=== PATIENT | female | born 1985 | race Caucasian/White ===

== ENCOUNTER → 2016-05-31 | Outpatient (CLI) | payer BC ==
[2016-05-31 08:16] LABS: Basophils % (A) 0 %; CH 28.5; CHCM 32.8; Eosinophils # (A) 0.1 k/uL (0-0.7); Eosinophils % (A) 1 %; HCT 44.2 % (34.0-46.0); HDW 2.46; HGB 14.3 gm/dL (11.4-16.0); Luc # (Auto) 0.12; Luc % (Auto) 2; Lymphocytes # (A) 1.6 k/uL (1.0-4.8); Lymphocytes % (A) 27 %; MCH 28.2 pg (25.0-35.0); MCHC 32.3 g/dL (31.0-37.0); MCV 87.4 fL (80.0-100.0); Mean Platelet Volume 6.5; Monocytes # (A) 0.3 k/uL (0-1.0); Monocytes % (A) 5 %; Neutrophils # (A) 3.7 k/uL (1.3-7.7); Neutrophils % (A) 64 %; RBC 5.06 m/uL (3.80-5.40); RDW 12.3 % (11.5-15.5); WBC 5.8 k/uL (3.8-10.6); WBC (Perox) 6.27
[2016-05-31 08:34] LABS: ALT 28 U/L (9-52); AST 21 U/L (14-36); Alkaline Phosphatase 81 U/L (38-126); Anion Gap 9 mmol/L; Blood Urea Nitrogen 9 mg/dL (7-17); Calcium 9.5 mg/dL (8.4-10.2); Carbon Dioxide 28 mmol/L (22-30); Chloride 105 mmol/L (98-107); Cholesterol 215 mg/dL (<200); Glucose 106 mg/dL (74-99); HDL Cholesterol 63 mg/dL (40-60); Non-African American GFR(MDRD) >60 (>60 ml/min/1.73 sqM); Potassium 4.4 mmol/L (3.5-5.1); Sodium 142 mmol/L (137-145); Total Bilirubin 0.6 mg/dL (0.2-1.3); Total Protein 7.3 g/dL (6.3-8.2); Triglycerides 66 mg/dL (<150)
== END ==
LOC: LABWHC1 07:24
PROVIDERS: ATTEND Nurse Practitioner Primary Care
DX: Z00.00 Encounter for general adult medical examination without abnormal findings (principal)
CPT/HCPCS: 36415; 80053; 80061; 82306; 84443; 85025

== ENCOUNTER → 2016-07-26 | Outpatient (CLI) | payer BC ==
--- NOTE | 2016-07-27 17:24 | FL ---
EXAMINATION: Small bowel follow through DATE: 07/26/2016 CLINICAL INDICATION: 31-year-old female change in bowel habits, vomiting/diarrhea. Patient reports co lonoscopy found erosions in the terminal ileum. Patient with a 35 pound weight loss in 3.5 months. COMPARISON: 07/15/2013 radiographs FINDINGS: Following administration of a total of 16 ounces thin barium, serial films were carried out to 2 hour s 30 minutes. Barium is seen to reach the colon at the 2.5 hour film but not the 1 hour 45 minute jose elias m. The initial graduate teaching associate image shows possible 3 mm calculus in the left midabdomen. Cholecystectomy clips ar e present. Mild stool in the ascending colon. Initial images up to 1 hour show persistent prominent contrast within the stomach. Gradual emptying i s seen at 1 hour 45 minutes and 2 hours 30 minutes. Loops of jejunum and ileum are compressed and examined under fluoroscopy. Some of the spot views of t he terminal ileum suggest very subtle fold nodularity. Otherwise, mucosal pattern of the remainder of the small bowel is within normal limits. IMPRESSION: 1. Prominent retained contrast within the stomach up to atleast 1 hour. If gastroparesis is a clinic al possibility, a nuclear medicine gastric emptying study can be considered. 2. Normal small bowel transit time of around 2 hours. 3. Some of the spot views of the terminal ileum suggest very subtle fold nodularity. This is nonspeci fic but can be seen in the setting of an infectious or inflammatory terminal ileitis. 4. Possible nonobstructive 3 mm left renal calculus.
== END | disposition home or self-care (01) ==
LOC: RADFLMAIN 08:28
PROVIDERS: ATTEND Internal Medicine Gastroenterology
DX: R19.4 Change in bowel habit (principal)
CPT/HCPCS: 74250

== ENCOUNTER 2017-01-02 13:20 | Outpatient (CLI) | payer BC ==
[2017-01-02 13:42] VITALS: BP 114/73; PULSE 83; RESP 17; TEMP 97.3
--- NOTE | 2017-01-27 08:26 | P.MSEPDOC ---
Presenting Problems - Arrival Data Date of Arrival on Unit: 01/02/17 Time of Arrival on Unit: 13:20 Mode of Transport: Ambulatory - Complaint OB-Reason for Admission/Chief Complaint: Decreased Movement Comment: pt reports decreased movement since 1000 on 12/31, denies lof/vb, reports occasional tightening that is not associated with pain Medical History - Information : 3 Para: 2 Term: 1 : 1 Abortions: Spontaneous or Elective: 0 Number of Living Children: 2 - Gestational Age Gestational Age by WILTON (wks/days): 26 Weeks and 2 Days - History Complications: Prior Review of Systems - Review of Systems Constitutional: No problems Breast: No problems ENT: No problems Cardiovascular: No problems Respiratory: No problems Gastrointestinal: No problems Genitourinary: No problems Musculoskeletal: No problems Neurological: No problems Skin: No problems Comment: reports constant lower back pain for last several days that carries into her hips, no urinary issues associated with back pain Vital Signs - Temperature Temperature: 97.3 F Temperature Source: Temporal Artery Scan - Pulse Right Brachial Pulse Rate: 83 Pulse Assessment Method: Automatic Cuff - Respirations Respiratory Rate: 17 Oxygen Delivery Method: Room Air O2 Sat by Pulse Oximetry: 100 - Blood Pressure Right Arm Blood Pressure: 114/73 Blood Pressure Mean: 86 Blood Pressure Source: Automatic Cuff Medical Screen Scoring (Pre) - Cervical Exam Dilation: Exam Deferred Effacement: Exam Deferred Membranes: Intact - Uterine Contractions Frequency: N/A Duration: N/A Intensity: N/A - Maternal Vital Signs Maternal Temperature: N/A Maternal Blood Pressure: N/A Signs of Preeclampsia: N/A Maternal Respirations: N/A - Maternal Trauma Maternal Trauma: N/A - Assessment Baseline FHR: 145 Heart Rate - NICHD Category: Category I (Normal) = 0 Position: N/A Station: N/A - Total Score Total Score (Pre): 0 - Level of Risk Level of Risk: Low (0-5) Physician Notification (Pre) - Physician Notified Physician Notified Date: 01/02/17 Physician Notified Time: 13:50 Physician/Practitioner Notifed:: Dr Sood Spoke With: Dr Sood New Order Received: Yes (dc home) - Notification Comment Comment: pt ok to dc home at this time, has appt scheduled in two weeks Disposition - Disposition OB Disposition: Discharge to home, Written follow up instructions reviewed Discharge Date: 01/02/17 Discharge Time: 13:55 I agree with the RN Medical Screening Exam: Yes Risk & Benefit of care provided described in d/c instruction: Yes Diagnosis: DECREASED MOVEMENTS, SECOND TRIMESTER, FETUS 1
== END 2017-01-02 13:55 | disposition home or self-care (01) ==
LOC: FBPOP 13:20
PROVIDERS: ATTEND Obstetrics & Gynecology Obstetrics
DX: O36.8121 Decreased fetal movements, second trimester, fetus 1 (principal); Z3A.26 26 weeks gestation of pregnancy
CPT/HCPCS: 99213

== ENCOUNTER 2018-08-26 09:16 | Outpatient (CLI) | payer OTHER ==
[2018-08-26 09:59] VITALS: BP 120/75; PULSE 92; RESP 18; TEMP 97.1
--- NOTE | 2018-09-01 10:23 | P.MSEPDOC ---
Presenting Problems - Arrival Data Date of Arrival on Unit: 08/26/18 Time of Arrival on Unit: 09:30 Mode of Transport: Ambulatory - Complaint OB-Reason for Admission/Chief Complaint: Possible Onset of Labor Medical History - Information : 5 Para: 3 Term: 2 : 1 Abortions: Spontaneous or Elective: 1 Number of Living Children: 3 - Gestational Age Gestational Age by WILTON (wks/days): 37 Weeks and 3 Days Review of Systems - Review of Systems Constitutional: No problems Breast: No problems ENT: No problems Cardiovascular: No problems Respiratory: No problems Gastrointestinal: No problems Genitourinary: No problems Musculoskeletal: No problems Neurological: No problems Skin: No problems Vital Signs - Temperature Temperature: 97.1 F Temperature Source: Temporal Artery Scan - Pulse Right Brachial Pulse Rate: 92 - Respirations Respiratory Rate: 18 Oxygen Delivery Method: Room Air O2 Sat by Pulse Oximetry: 98 - Blood Pressure Right Arm Blood Pressure: 120/75 Blood Pressure Mean: 90 Blood Pressure Source: Automatic Cuff Medical Screen Scoring (Pre) - Cervical Exam Dilation: 1-3 cm = 1 Membranes: Intact - Uterine Contractions Frequency: N/A Duration: N/A Intensity: N/A - Maternal Vital Signs Maternal Temperature: N/A Maternal Blood Pressure: N/A Signs of Preeclampsia: N/A - Pain Assessment Pain Location and Character: Lower, Abdomen Pain Scale Used: Numeric (1 - 10) Pain Intensity: 5 Pain Description: *Acute Pain Behavior: None Exhibited, Vocalization Pain Aggravating Factors: Activity, Contractions - Maternal Trauma Maternal Trauma: N/A - Assessment Baseline FHR: 135 Heart Rate - NICHD Category: Category I (Normal) = 0 NST: Reactive Position: N/A Station: N/A - Total Score Total Score (Pre): 1 Physician Notification (Pre) - Physician Notified Physician Notified Date: 08/26/18 Physician Notified Time: 10:00 Physician/Practitioner Notifed:: homero Spoke With: homero New Order Received: (discharge home) - Notification Comment Comment: discharge home keep next sched appt with dr patel Disposition - Disposition OB Disposition: Discharge to home Discharge Date: 08/26/18 Discharge Time: 10:10 I agree with the RN Medical Screening Exam: Yes Risk & Benefit of care provided described in d/c instruction: Yes Diagnosis: FALSE LABOR AT OR AFTER 37 COMPLETED WEEKS OF GESTATION
== END 2018-08-26 10:10 | disposition home or self-care (01) ==
LOC: FBPOP 09:16
PROVIDERS: ATTEND Obstetrics & Gynecology
DX: O47.1 False labor at or after 37 completed weeks of gestation (principal); Z3A.37 37 weeks gestation of pregnancy
CPT/HCPCS: 59025; 99213

== ENCOUNTER 2018-09-01 06:05 | Outpatient (CLI) | payer OTHER ==
[2018-09-01 07:43] VITALS: BP 134/74; PULSE 92; RESP 16; TEMP 97.9
--- NOTE | 2018-09-11 12:41 | P.MSEPDOC ---
Presenting Problems - Arrival Data Date of Arrival on Unit: 09/01/18 Time of Arrival on Unit: 06:05 Mode of Transport: Ambulatory - Complaint OB-Reason for Admission/Chief Complaint: Possible Onset of Labor Medical History - Information : 5 Para: 3 Term: 3 : 0 Abortions: Spontaneous or Elective: 1 Number of Living Children: 3 - Gestational Age Gestational Age by WILTON (wks/days): 38 Weeks and 2 Days Review of Systems - Review of Systems Constitutional: No problems Breast: No problems ENT: No problems Cardiovascular: No problems Respiratory: No problems Gastrointestinal: No problems Genitourinary: No problems Musculoskeletal: No problems Neurological: No problems Skin: No problems Vital Signs - Temperature Temperature: 97.9 F Temperature Source: Oral - Pulse Pulse Oximetery Pulse Rate: 92 Pulse Assessment Method: Pulse Oximetry - Respirations Respiratory Rate: 16 Oxygen Delivery Method: Room Air O2 Sat by Pulse Oximetry: 99 - Blood Pressure Right Arm Blood Pressure: 134/74 Blood Pressure Mean: 94 Blood Pressure Source: Automatic Cuff Medical Screen Scoring (Pre) - Cervical Exam Dilation: 1-3 cm = 1 Effacement: Exam Deferred Membranes: Intact - Uterine Contractions Frequency: > 5 minutes apart = 1 Duration: > 40 seconds = 2 Intensity: N/A - Maternal Vital Signs Maternal Temperature: N/A Maternal Blood Pressure: N/A Signs of Preeclampsia: N/A Maternal Respirations: N/A - Assessment - Baby A Baseline FHR: 140 Heart Rate - NICHD Category: Category II (Indeterminate) = 3 NST: Reactive Position: N/A Station: N/A - Total Score - Baby A Total Score - Baby A: 7 - Level of Risk - Baby A Level of Risk - Baby A: Medium (6-9) - Pain Assessment Pain Location and Character: Back Pain Scale Used: Numeric (1 - 10) Pain Intensity: 8 Pain Management Goal: 3 Pain Description: *Acute, Tightness Pain Frequency: Intermittent Pain Duration Units: Minutes Pain Behavior: Vocalization Pain Aggravating Factors: Contractions Non-Pharmacological Interventions: Distraction, Reduce Environmental Stimuli Physician Notification (Pre) - Physician Notified Physician Notified Date: 09/01/18 Physician Notified Time: 07:20 Physician/Practitioner Notifed:: Dr. Sood Spoke With: Dr. Sood New Order Received: Yes - Notification Comment Comment: Dr. Sood called and report given on maternal status, status including 1 variable and 1 late decel but reactive strip and numerous accels, sterile vag exam no change after 1 hour. Pauline Benton RN agrees with documentation Disposition - Disposition OB Disposition: Discharge to home Discharge Date: 09/01/18 Discharge Time: 07:30 I agree with the RN Medical Screening Exam: Yes Risk & Benefit of care provided described in d/c instruction: Yes Diagnosis: FALSE LABOR AT OR AFTER 37 COMPLETED WEEKS OF GESTATION
== END 2018-09-01 07:30 | disposition home or self-care (01) ==
LOC: FBPOP 06:05
PROVIDERS: ATTEND Obstetrics & Gynecology Obstetrics
DX: O47.1 False labor at or after 37 completed weeks of gestation (principal); Z3A.38 38 weeks gestation of pregnancy
CPT/HCPCS: 59025; 84112; 99213

== ENCOUNTER 2018-09-06 05:50 | Inpatient (IN) | payer OTHER ==
[2018-09-06] MEDS ORDERED: METHYLERGONOVINE 0.2 MG/ML 1 ML AMP IM PRN (06:06)
[2018-09-06] MEDS ORDERED: TERBUTALINE 1 MG/ML VIAL SQ PRN (06:06)
[2018-09-06] MEDS ORDERED: LIDOCAINE 0.5% (PF) 5 MG/ML (50 ML SDV) SQ PRN (06:06)
[2018-09-06] MEDS ORDERED: AMPICILLIN 2,000 MG in SODIUM CHLORIDE 0.9% 100 ML IVPB STA (06:06)
[2018-09-06] MEDS ORDERED: CARBOPROST TROMETHAMINE 250 MCG/ML 1 ML AMP IM PRN (06:06)
[2018-09-06] MEDS ORDERED: OXYTOCIN 10 UNIT/ML 1 ML VIAL IM PRN (06:06)
[2018-09-06] MEDS ORDERED: OXYTOCIN 30 UNITS/500 ML NS 30 UNIT in SALINE 1 500ML.BAG IV SCH (06:15)
[2018-09-06 06:16] VITALS: BMI 35.9
[2018-09-06] MEDS: LACTATED RINGERS 1,000 ML IV SCH ×2 (06:27→09:38)
[2018-09-06 06:28] LABS: Basophils % (A) 0 %; Eosinophils # (A) 0.1 k/uL (0-0.7); Eosinophils % (A) 1 %; HCT 38.7 % (34.0-46.0); HGB 12.4 gm/dL (11.4-16.0); Lymphocytes % (A) 20 %; MCH 26.6 pg (25.0-35.0); Mean Platelet Volume 8.5; Monocytes # (A) 0.6 k/uL (0-1.0); Monocytes % (A) 6 %; Neutrophils # (A) 7.2 k/uL (1.3-7.7); Neutrophils % (A) 73 %; Platelet Count 126 k/uL (150-450); RBC 4.67 m/uL (3.80-5.40); RDW 15.1 % (11.5-15.5)
--- NOTE | 2018-09-06 08:30 | P.HPOB ---
History of Present Illness H&P Date: 09/06/18 Chief Complaint: IUP at 390/7 weeks This is a pleasant 33-year-old 5 para 3013 at 39-0/7 weeks that presents to labor and delivery for elective induction of labor. Patient has been receiving routine care with myself since the first trimester. care has been essentially uncomplicated. Patient has a history of a with her first delivery and 2 subsequent vaginal births after . Patient desires vaginal once again. Patient has a blood type of A+, rubella immune, RPR nonreactive, hepatitis B surface antigen negative, HIV negative, normal gestational diabetes screen on 02/28 with a result of 126. Group beta strep culture was positive at 36 weeks. ( 08/15/18). She did receive her Tdap Vaccine on 06/22/18 Today she states she is having an occasional contraction she notes good movement denies loss of fluid or vaginal bleeding. Review of Systems Constitutional: Denies fatigue, Denies fever Ears, nose, mouth and throat: Denies headache Cardiovascular: Reports leg edema Respiratory: Denies dyspnea Gastrointestinal: Denies constipation, Denies diarrhea, Denies nausea, Denies vomiting Genitourinary: Reports Past Medical History Additional Past Medical History / Comment(s): Crohn's disease, scoliosis History of Any Multi-Drug Resistant Organisms: None Reported Past Surgical History: Section, Cholecystectomy, Tonsillectomy Past Anesthesia/Blood Transfusion Reactions: No Reported Reaction Past Psychological History: No Psychological Hx Reported Smoking Status: Never smoker Past Alcohol Use History: None Reported Past Drug Use History: None Reported - Past Family History Father Family Medical History: No Reported History Medications and Allergies Home Medications Medication Instructions Recorded Confirmed Type Pnv,Calcium 72/Iron/Folic Acid 1 tab PO DAILY MDD 2 tabs 01/02/17 09/06/18 History [ Plus Tablet] Ranitidine HCl [Zantac] 150 mg PO BID 08/26/18 09/06/18 History L.acidoph,Paracasei, B.lactis 1 each PO DAILY 09/06/18 09/06/18 History [Probiotic] Allergies Allergy/AdvReac Type Severity Reaction Status Date / Time morphine Allergy Anaphylaxis Verified 09/06/18 06:02 Exam Osteopathic Statement: *. No significant issues noted on an osteopathic structural exam other than those noted in the History and Physical/Consult. Vital Signs Temp Pulse Resp BP Pulse Ox 09/06/18 06:08 97.4 F L 108 H 18 124/75 97 Intake and Output 09/05/18 09/06/18 09/06/18 22:59 06:59 14:59 Other: Weight 86.183 kg Targeted physical exam is performed on this date in general this is a well- nourished well-developed female in no acute distress, reading is noted to be nonlabored and heart has regular rate and rhythm, abdomen is noted to be gravid, on cervical exam she is 3/70/-2 amniotomy is performed and clear fluid i s obtained, heart tones are noted to be category 1 and she is neelima every 4 minutes. Results Result Diagrams: 09/06/18 06:12 Abnormal Lab Results - Last 24 Hours (Table) 09/06/18 Range/Units 06:12 Plt Count 126 L (150-450) k/uL Assessment and Plan (1) H/O vaginal after Current Visit: Yes Status: Acute Code(s): Z98.891 - HISTORY OF UTERINE SCAR FROM PREVIOUS SURGERY SNOMED Code(s): 714381210 (2) Positive GBS test Current Visit: No Status: Acute Code(s): B95.1 - STREPTOCOCCUS, GROUP B, CAUSING DISEASES [facility] SNOMED Code(s): 216459272 (3) Term Current Visit: No Status: Acute Code(s): Z34.80 - ENCOUNTER FOR SUPRVSN OF NORMAL , UNSP TRIMESTER SNOMED Code(s): 15735446 Plan: Plan induction of labor with Pitocin as she has done this in the past. Patient understands risks with a prior but given the length of time since her and 2 successful vaginal deliveries after she wishes to proceed. She declines request for epidural during labor. Anticipate spotting is vaginal delivery later this afternoon.
[2018-09-06] MEDS: PRENATAL VIT-IRON-FOLIC ACID 1 EACH CAP PO SCH (09:38)
[2018-09-06] MEDS: FAMOTIDINE 20 MG TAB PO SCH ×2 (09:38→22:01)
[2018-09-06] MEDS: AMPICILLIN 1,000 MG in SODIUM CHLORIDE 0.9% 50 ML IVPB SCH ×2 (11:07→14:45)
[2018-09-06] MEDS ORDERED: SIMETHICONE 80 MG CHEWABLE PO PRN (13:22)
[2018-09-06] MEDS ORDERED: diphenhydrAMINE 50 MG/ML 1 ML VIAL IVP PRN ×2 (13:22)
[2018-09-06] MEDS ORDERED: IBUPROFEN 600 MG TAB PO PRN (13:22)
[2018-09-06] MEDS ORDERED: diphenhydrAMINE 25 MG CAP PO PRN (13:22)
[2018-09-06] MEDS ORDERED: BENZOCAINE/MENTHOL SPRAY 1 GM/SPRAY AEROSOL TOPICAL PRN (13:22)
[2018-09-06] MEDS ORDERED: HYDROcodone/APAP 5-325MG 1 EACH TAB PO PRN (13:22)
[2018-09-06] MEDS ORDERED: ZOLPIDEM 5 MG TAB PO PRN (13:22)
[2018-09-06] MEDS ORDERED: LANOLIN CREAM 5 GM TUBE TOPICAL PRN (13:22)
[2018-09-06] MEDS ORDERED: diphenhydrAMINE 50 MG CAP PO PRN (13:22)
[2018-09-06] MEDS ORDERED: WITCH HAZEL 1 EACH MED..PAD TOPICAL PRN (13:22)
[2018-09-06] MEDS ORDERED: HYDROCORTISONE 2.5% RECTAL CREAM 30 GM TUBE RECTAL PRN (13:22)
--- NOTE | 2018-09-06 13:22 | P.PROBDLV ---
Vaginal Delivery Note - . Vaginal Delivery Note: This is a pleasant 33-year-old 5 para 3013 at 39-0/7 weeks that presented today for elective induction of labor. Patient was admitted and Pitocin induction of labor was begun. Amniotomy was performed once regular painful contractions were noted, patient was noted to have clear fluid at this time. Patient was GBS positive and treated 2 during the course of her labor. Patient progressed to complete began pushing and had a normal spontaneous vaginal delivery of a viable male infant with a compound hand, and a true knot noted in the umbilical cord. time of 1309, weight of 7 lbs. 7 oz. with Apgars of 9 and 10 at one and 5 minutes respect daily. After a two-minute delayed the umbilical cord was doubly clamped and cut and the placenta was delivered spontaneously intact with a three-vessel cord being noted. On inspection the patient's vaginal vault no lacerations were noted. Uterus is noted to be firm and below the umbilicus, estimated blood loss 250 mL, patient and infant tolerated delivery well and are resting comfortably.
[2018-09-06] MEDS ORDERED: OXYTOCIN 20 UNITS/1000 ML NS 1,000 ML IV SCH (13:30)
[2018-09-06] MEDS: ACETAMINOPHEN TAB 325 MG TAB PO PRN ×2 (13:52→21:41)
[2018-09-06 20:48] VITALS: RESP 16
[2018-09-06] MEDS: SENNOSIDES-DOCUSATE SODIUM 1 EACH TAB PO SCH (22:00)
[2018-09-07 07:45] LABS: Basophils % (A) 0 %; Eosinophils % (A) 0 %; HCT 37.9 % (34.0-46.0); HGB 12.2 gm/dL (11.4-16.0); Lymphocytes # (A) 1.9 k/uL (1.0-4.8); Lymphocytes % (A) 13 %; MCH 26.8 pg (25.0-35.0); MCHC 32.2 g/dL (31.0-37.0); MCV 83.2 fL (80.0-100.0); Mean Platelet Volume 8.5; Monocytes # (A) 0.8 k/uL (0-1.0); Monocytes % (A) 6 %; Neutrophils # (A) 11.2 k/uL (1.3-7.7); Neutrophils % (A) 80 %; Platelet Count 131 k/uL (150-450); RBC 4.55 m/uL (3.80-5.40); RDW 14.7 % (11.5-15.5)
[2018-09-07] MEDS: SENNOSIDES-DOCUSATE SODIUM 1 EACH TAB PO SCH (08:04)
--- NOTE | 2018-09-07 08:12 | P.DS ---
Providers Date of admission: 09/06/18 05:50 Expected date of discharge: 09/07/18 Attending physician: Brit Sood Primary care physician: Stated None - Discharge Diagnosis(es) (1) H/O vaginal after Current Visit: Yes Status: Acute (2) Positive GBS test Current Visit: No Status: Acute (3) Term Current Visit: No Status: Acute Hospital Course: This is a pleasant 33-year-old 5 para 3013 at 39-0/7 weeks that presented to labor and delivery yesterday for elective induction of labor. Patient has a history of 1 for breech with her first in 2 subsequent successful VBACs. Patient was admitted Pitocin induction of labor was begun. Patient progressed through labor amniotomy was performed when regular contractions were noted. Clear fluid was obtained at that time. Patient progressed to complete began pushing and had a normal spontaneous vaginal delivery of a viable male at 1309, weight of 7 lbs. 7 oz. with Apgars of 9 and 10 at one and 5 minutes respectively. Patient's course has been uneventful. She is ambulating and voiding without difficulty. She states her lochia is moderate. She is breast-feeding. She denies concerns and wishes discharge home at 24 hours. Patient Condition at Discharge: Good Plan - Discharge Summary New Discharge Prescriptions: No Action Pnv,Calcium 72/Iron/Folic Acid [ Plus Tablet] 1 tab PO DAILY MDD 2 tabs Ranitidine HCl [Zantac] 150 mg PO BID L.acidoph,Paracasei, B.lactis [Probiotic] 1 each PO DAILY Discharge Medication List Pnv,Calcium 72/Iron/Folic Acid [ Plus Tablet] 1 tab PO DAILY MDD 2 tabs 01/02/17 [History] Ranitidine HCl [Zantac] 150 mg PO BID 08/26/18 [History] L.acidoph,Paracasei, B.lactis [Probiotic] 1 each PO DAILY 09/06/18 [History] Follow up Appointment(s)/Referral(s): Brit Sood DO [Doctor of Osteopathic Medicine] - 4 Weeks Patient Instructions/Handouts: Vaginal Delivery (DC), Vaginal Delivery (GEN) Discharge Disposition: HOME SELF-CARE
[2018-09-07] MEDS: FAMOTIDINE 20 MG TAB PO SCH (11:55)
[2018-09-07] MEDS: PRENATAL VIT-IRON-FOLIC ACID 1 EACH CAP PO SCH (11:55)
[2018-09-07 16:32] VITALS: BP 102/58; PULSE 63; TEMP 98.6
== END 2018-09-07 17:00 | disposition home or self-care (01) | DRG 806 ==
LOC: 4FBP 05:50
PROVIDERS: ADMIT Obstetrics & Gynecology Obstetrics; ATTEND Obstetrics & Gynecology Obstetrics
PROC: 10E0XZZ Delivery of Products of Conception, External Approach (ICD-10-PCS; principal; 2018-09-06)
PROC: 10907ZC Drainage of Amniotic Fluid, Therapeutic from Products of Conception, Via Natural or Artificial Opening (ICD-10-PCS; 2018-09-06)
PROC: 3E033VJ Introduction of Other Hormone into Peripheral Vein, Percutaneous Approach (ICD-10-PCS; 2018-09-06)
DX: O34.219 Maternal care for unspecified type scar from previous cesarean delivery (principal); K50.90 Crohn's disease, unspecified, without complications; Z37.0 Single live birth; O69.2XX0 Labor and delivery complicated by other cord entanglement, with compression, not applicable or unspecified; O99.62 Diseases of the digestive system complicating childbirth; O32.6XX0 Maternal care for compound presentation, not applicable or unspecified; O99.824 Streptococcus B carrier state complicating childbirth; O99.89 Other specified diseases and conditions complicating pregnancy, childbirth and the puerperium; M41.9 Scoliosis, unspecified; Z3A.39 39 weeks gestation of pregnancy; Z90.49 Acquired absence of other specified parts of digestive tract; Z88.5 Allergy status to narcotic agent
CPT/HCPCS: 85025; 86850; 86900; 86901

== ENCOUNTER 2019-11-08 08:15 | Day surgery (SDC) | payer BC, OTHER ==
[2019-11-07 08:28] VITALS: BMI 31.1
[~2019-11-08 08:15] MED LIST: LACTATED RINGERS 1,000 ML IV SCH; LIDOCAINE 1% (10MG/ML) FOR IV START INTRADERMA PRN
[2019-11-08 08:52] VITALS: TEMP 97.6
[2019-11-08] MEDS ORDERED: PROPOFOL 10 MG/ML 20 ML VIAL IV ONE (09:50)
[2019-11-08] MEDS ORDERED: LIDOCAINE 1% INJ 10MG/ML (20 ML MDV) ONE (09:50)
--- NOTE | 2019-11-08 10:35 | P.PCN ---
Date of Procedure: 11/08/19 Description of Procedure: Brief history: Patient is a pleasant 34-year-old female presenting for EGD and colonoscopy for evaluation of GERD and change in bowel habits. Patient reports alternating constipation was bowel movement. She does report nocturnal bowel movements. She reports episodes of abdominal pain and severe nausea and vomiting. Procedure performed: Esophagogastroduodenoscopy with biopsy Colonoscopy with biopsy Estimated blood loss: Minimal. Preoperative diagnosis: GERD, change in bowel habits Anesthesia: MAC Procedure: After informed consent was obtained from the patient was brought into the endoscopy unit and IV sedation was administered by anesthesia under continuous monitoring. Initially upper endoscopy was done. The Olympus GF 190 video endoscope was inserted into the mouth and esophagus intubated without any difficulty and was gradually advanced into the stomach and duodenum and carefully examined. The bulb and second part of the duodenum appeared normal, with biopsies. The scope was then withdrawn into the stomach adequately insufflated with air and upon careful examination the antrum and body, cardia and fundus appeared normal, except for some mild scattered erythema in the antrum and body suggestive of mild gastritis. Biopsies taken. The scope was then withdrawn into the esophagus. The GE junction was located at 36 cm to the incisors with biopsies taken. It appeared regular with no erythema erosions or ulcerations. Rest of the esophagus appeared normal. Patient tolerated the procedure well. At this time the patient continued to remain sedation. Initial digital rectal examination was normal. Olympus CF 190 video colonoscope was then inserted into the rectum and gradually advanced to the cecum without any difficulty. Careful examination was performed as the scope was gradually being withdrawn. The prep was excellent. The cecum, ascending colon, transverse colon, descending colon, sigmoid colon and rectum appeared normal, with biopsies taken in the right and left colon in the setting of altered bowel function. Normal-appearing terminal ileum except for one superficial erosion with biopsies taken. Retroflexion was performed in the rectum and no lesions were noted, low-grade internal hemorrhoids. Patient tolerated the procedure well. Impression: 1. Mild gastritis antrum body, biopsied. Biopsies of the duodenum and GE junction. 2. Normal-appearing colon from rectum to cecum with a normal-appearing terminal ileum except for one superficial erosion in the ileum, with biopsies taken of the right colon, left colon and terminal ileum in the setting of altered bowel function. Recommendations: Findings of this examination were discussed with the patient as well as her . Okay to resume diet. Okay to resume medications. Follow-up in gastroenterology clinic as previously scheduled For results of biopsies.
[2019-11-08 11:03] VITALS: BP 116/84; PULSE 67; RESP 18
== END 2019-11-08 11:21 | disposition home or self-care (01) ==
LOC: ORWHC2ENDO 08:15
PROVIDERS: ATTEND Internal Medicine
DX: K29.70 Gastritis, unspecified, without bleeding (principal); K21.9 Gastro-esophageal reflux disease without esophagitis; K63.3 Ulcer of intestine; Z88.5 Allergy status to narcotic agent; Z90.49 Acquired absence of other specified parts of digestive tract; Z98.890 Other specified postprocedural states
CPT/HCPCS: 81025; 88305; 45380; 43239; J2001; J2704

== ENCOUNTER → 2020-01-09 | Day surgery (SDC) | payer OTHER, BC ==
[~2020-01-09] MED LIST changes: +GLUCAGON 1 MG/ML VIAL IM STA; -LACTATED RINGERS 1,000 ML IV SCH; -LIDOCAINE 1% (10MG/ML) FOR IV START INTRADERMA PRN
[2020-01-09 08:43] VITALS: BP 117/61; PULSE 75; RESP 16; TEMP 97.8
--- NOTE | 2020-01-09 16:29 | MR ---
EXAMINATION TYPE: MR Enterography DATE OF EXAM: 01/09/2020 COMPARISON: Fluoroscopic small bowel follow-through 07/26/2016 HISTORY: Abnormal Weight Loss. History of cholecystectomy. CONTRAST: Standard multiplanar, multisequence imaging of the abdomen is performed without and with IV contrast, patient is injected with 7.5 mL intravenous Gadavist gadolinium contrast. Oral Volumen and Water was given as per enterography protocol. FINDINGS: BOWEL: There is 7 to 10 cm of distal ileum segmental mural hyperenhancement within the right lower q uadrant and mid lower abdomen (701:69). There is no upstream dilatation to suggest stricture. There i s no significant associated wall thickening, intramural or perienteric edema, fibrofatty perforation, fistulization, or abscess. No restricted diffusion. No evidence of bowel obstruction or dilatation. LIVER: Visualized portions normal. BILIARY SYSTEM: Status post cholecystectomy. No visualized biliary ductal dilatation. PANCREAS: Normal. SPLEEN: Visualized portions normal. ADRENALS: Normal. KIDNEYS: Normal. PERITONEUM: No free air is visualized. Trace physiologic pelvic free fluid. ADENOPATHY: No lymphadenopathy. PELVIS: Visualized portions normal. Follicular changes of the bilateral ovaries with dominant follicl e on the right. VASCULATURE: No abdominal aortic aneurysm. MUSCULOSKELETAL: Normal sacroiliac joints and bone marrow signal. IMPRESSION: Nonspecific mural hyperenhancement of the distal ileum. No associated restricted diffusion, wall thic kening, intramural edema, or upstream dilatation. Wide differential includes mural inflammation such as Crohn's disease, enteritis, enteropathy, NSAIDs, or underdistention.
== END ==
LOC: RADMRIMAIN 08:11
PROVIDERS: ATTEND Physician Assistant
DX: R63.4 Abnormal weight loss (principal)
CPT/HCPCS: 72197; 74183; 96372; J1610; A9585

== ENCOUNTER → 2020-03-07 | Outpatient (CLI) | payer BC, OTHER ==
[2020-03-07 15:09] LABS: HCT 37.8 % (34.0-46.0); HGB 12.7 gm/dL (11.4-16.0); MCH 27.9 pg (25.0-35.0); MCHC 33.5 g/dL (31.0-37.0); MCV 83.1 fL (80.0-100.0); Mean Platelet Volume 6.9; Platelet Count 164 k/uL (150-450); RBC 4.54 m/uL (3.80-5.40); RDW 13.4 % (11.5-15.5); WBC 8.7 k/uL (3.8-10.6)
[2020-03-08 01:37] LABS: T4, Free (Free Thyroxine) 1.1 ng/dL (0.80-1.80)
[2020-03-08 01:38] LABS: ALT 17 U/L (8-44); AST 18 U/L (13-35); African American GFR (CKD) 113.1 (60.0-200.0); Albumin/Globulin Ratio 2.56 (1.60-3.17); Alkaline Phosphatase 84 U/L (41-126); BUN/Creat Ratio 11.25 Ratio (12.00-20.00); C Reactive Protein <0.4 mg/dL (0.0-0.8); Carbon Dioxide 27.9 mmol/L (21.6-31.8); Chloride 102 mmol/L (96-109); Globulin 1.8 g/dL (1.6-3.3); Glucose 94 mg/dL (70-110); Non-African American GFR(CKD) 97.6 (60.0-200.0); Potassium 4.2 mmol/L (3.5-5.5); Sodium 137 mmol/L (135-145); Total Bilirubin 0.3 mg/dL (0.3-1.2); Total Protein 6.4 g/dL (6.2-8.2)
== END | disposition home or self-care (01) ==
LOC: LABWHC1 14:31
PROVIDERS: ATTEND Obstetrics & Gynecology Obstetrics
DX: N92.6 Irregular menstruation, unspecified (principal); R19.4 Change in bowel habit
CPT/HCPCS: 36415; 80053; 84439; 84443; 85027; 85652; 86140

== ENCOUNTER 2020-04-10 11:34 | Emergency (ER) | payer OTHER, BC ==
[2020-04-10] MEDS ORDERED: ONDANSETRON 4 MG/2 ML VIAL IVP STA (12:07)
[2020-04-10 12:17] LABS: Basophils % (A) 1 %; Eosinophils # (A) 0.2 k/uL (0-0.7); Eosinophils % (A) 2 %; HCT 42.3 % (34.0-46.0); HGB 13.7 gm/dL (11.4-16.0); Lymphocytes # (A) 1.8 k/uL (1.0-4.8); Lymphocytes % (A) 23 %; MCH 26.7 pg (25.0-35.0); MCHC 32.4 g/dL (31.0-37.0); MCV 82.4 fL (80.0-100.0); Mean Platelet Volume 7.2; Monocytes # (A) 0.4 k/uL (0-1.0); Monocytes % (A) 5 %; Neutrophils # (A) 5.4 k/uL (1.3-7.7); Neutrophils % (A) 69 %; Platelet Count 211 k/uL (150-450); RBC 5.14 m/uL (3.80-5.40); RDW 13.8 % (11.5-15.5); WBC 7.8 k/uL (3.8-10.6)
[2020-04-10 12:18] LABS: Appearance,Urine Cloudy (Clear); Bacteria,Urine Rare /hpf; Bilirubin,Urine Negative (Negative); Blood,Urine Negative (Negative); Color,Urine Light Yellow; Glucose,Urine (UA) Negative (Negative); Ketones,Urine Negative (Negative); Leukocyte Esterase,Urine Negative (Negative); Mucus,Urine Rare /hpf; Nitrite,Urine Negative (Negative); Protein,Urine Negative (Negative); RBC,Urine 1 /hpf (0-5); Specific Gravity,Urine 1.018 (1.001-1.035); Squamous Epithelial Cell,Urine 7 /hpf (0-4); Urobilinogen,Urine <2.0 mg/dL (<2.0); WBC,Urine 2 /hpf (0-5)
[2020-04-10 12:28] LABS: ALT 20 U/L (4-34); AST 34 U/L (14-36); African American GFR (CKD) >90 (>60 ml/min/1.73 sqM); Albumin 4.6 g/dL (3.5-5.0); Alkaline Phosphatase 75 U/L (38-126); Amylase 102 U/L (30-110); Anion Gap 4 mmol/L; Blood Urea Nitrogen 10 mg/dL (7-17); Calcium 9.5 mg/dL (8.4-10.2); Carbon Dioxide 28 mmol/L (22-30); Chloride 104 mmol/L (98-107); Glucose 101 mg/dL (74-99); Lipase 104 U/L (23-300); Non-African American GFR(CKD) >90 (>60 ml/min/1.73 sqM); Potassium 4.6 mmol/L (3.5-5.1); Sodium 136 mmol/L (137-145); Total Bilirubin 0.8 mg/dL (0.2-1.3); Total Protein 7.9 g/dL (6.3-8.2)
--- NOTE | 2020-04-10 12:39 | ED ---
Abdominal Pain HPI - General Chief Complaint: Abdominal Pain Stated Complaint: nausea/abd pain/shoulder pain/diff swallowing Time Seen by Provider: 04/10/20 11:49 Source: patient Mode of arrival: wheelchair Limitations: no limitations - History of Present Illness Initial Comments: 34-year-old female presenting today for chief complaint of right upper abdominal pain. Patient states that she has right-sided abdominal pain at times that radiates towards the right side of the back. It is below the shoulder. She denies shoulder joint pain. Patient has a chest pain or pressure. She states she was recently diagnosed with Crohn's disease and believes she is having a flare she states she is not currently on any immunomodulators nor chronic steroids. Patient states that not too long ago she was told she had an ileus and is concerned that she possibly has an obstruction. She does endorse some nausea but no vomiting. She states she did have a "normal for her" bowel movement this morning. She denies any black tarry stools or bloody stools. yo ent denies fevers. pt admits to increased acid so states she frequently has acidic taste in mouth that "hanley like diesel fuel". Pt states this causing her difficulty while eating with regurgitation. Patient denies additional complaints. - Related Data Previous Rx's Medication Instructions Recorded Ondansetron Odt [Zofran Odt] 4 mg PO Q8HR PRN 7 Days #21 tab 04/10/20 Pantoprazole Sodium [Protonix] 40 mg PO DAILY 7 Days #7 tablet. 04/10/20 Allergies Allergy/AdvReac Type Severity Reaction Status Date / Time morphine Allergy Anaphylaxis(tongue Verified 04/10/20 11:39 & throat swelling,unconscious) Review of Systems ROS Statement: Those systems with pertinent positive or pertinent negative responses have been documented in the HPI. ROS Other: All systems not noted in ROS Statement are negative. Past Medical History Additional Past Medical History / Comment(s): states " is concerned with gastroparesis,having increased nausea and food not digensting properly", Crohn's disease, scoliosis History of Any Multi-Drug Resistant Organisms: None Reported Past Surgical History: Section, Cholecystectomy, Tonsillectomy Past Anesthesia/Blood Transfusion Reactions: No Reported Reaction Past Psychological History: No Psychological Hx Reported Smoking Status: Never smoker Past Alcohol Use History: None Reported Past Drug Use History: None Reported - Past Family History Father Family Medical History: No Reported History General Exam - General Exam Comments Initial Comments: General: The patient is awake and alert, in no distress Eye: +3 mm pupils are equal, round and reactive to light, extra-ocular movements are intact. No nystagmus. There is normal conjunctiva bilaterally. No signs of icterus. Ears, nose, mouth and throat: There are moist mucous membranes and no oral lesions. Neck: The neck is supple, there is no tenderness or JVD. Cardiovascular: There is a regular rate and rhythm. No murmur, rub or gallop is appreciated. Respiratory: Lungs are clear to auscultation, respirations are non-labored, breath sounds are equal. No wheezes, stridor, rales, or rhonchi. Gastrointestinal: Soft, non-distended, upper abdominal tenderness to palpation, abdomen without masses or organomegaly noted. There is no rebound or guarding present. Musculoskeletal: Normal ROM, no tenderness. Strength 5/5. Sensation intact. Radial pulses equal bilaterally 2+. Neurological: A&O x 3. CN II-XII intact grossly, There are no obvious motor or sensory deficits. Coordination appears grossly intact. Speech is normal. Skin: Skin is warm and dry and no rashes or lesions are noted. Psychiatric: Cooperative, appropriate mood & affect, normal judgment. Limitations: no limitations Course Vital Signs 04/10/20 04/10/20 11:37 13:40 Temperature 98.7 F 98.3 F Pulse Rate 82 71 Respiratory 20 18 Rate Blood Pressure 124/82 104/66 O2 Sat by Pulse 100 100 Oximetry Medical Decision Making - Medical Decision Making Labs stable. CT enteritis. No obstruction. normal bowel movements per patient. pt nausea controlled with zofran. pt given protonix for reflux like symptoms. recommend pcp and GI f/u. Protonix and zofran ordered outpatient. pt is to return for worsening symptoms. Discussed case with attending - Lab Data Result diagrams: 04/10/20 12:06 04/10/20 12:06 Lab Results 04/10/20 04/10/20 04/10/20 Range/Units 12:06 12:06 12:06 WBC 7.8 (3.8-10.6) k/uL RBC 5.14 (3.80-5.40) m/uL Hgb 13.7 (11.4-16.0) gm/dL Hct 42.3 (34.0-46.0) % MCV 82.4 (80.0-100.0) fL MCH 26.7 (25.0-35.0) pg MCHC 32.4 (31.0-37.0) g/dL RDW 13.8 (11.5-15.5) % Plt Count 211 (150-450) k/uL MPV 7.2 Neutrophils % 69 % Lymphocytes % 23 % Monocytes % 5 % Eosinophils % 2 % Basophils % 1 % Neutrophils # 5.4 (1.3-7.7) k/uL Lymphocytes # 1.8 (1.0-4.8) k/uL Monocytes # 0.4 (0-1.0) k/uL Eosinophils # 0.2 (0-0.7) k/uL Basophils # 0.0 (0-0.2) k/uL Sodium (137-145) mmol/L Potassium (3.5-5.1) mmol/L Chloride (98-107) mmol/L Carbon Dioxide (22-30) mmol/L Anion Gap mmol/L BUN (7-17) mg/dL Creatinine (0.52-1.04) mg/dL Est GFR (CKD-EPI)AfAm (>60 ml/min/1.73 sqM) Est GFR (CKD-EPI)NonAf (>60 ml/min/1.73 sqM) Glucose (74-99) mg/dL Calcium (8.4-10.2) mg/dL Total Bilirubin (0.2-1.3) mg/dL AST (14-36) U/L ALT (4-34) U/L Alkaline Phosphatase (38-126) U/L Total Protein (6.3-8.2) g/dL Albumin (3.5-5.0) g/dL Amylase (30-110) U/L Lipase (23-300) U/L Urine Color Light Yellow Urine Appearance Cloudy H (Clear) Urine pH 7.0 (5.0-8.0) Ur Specific [place] 1.018 (1.001-1.035) Urine Protein Negative (Negative) Urine Glucose (UA) Negative (Negative) Urine Ketones Negative (Negative) Urine Blood Negative (Negative) Urine Nitrite Negative (Negative) Urine Bilirubin Negative (Negative) Urine Urobilinogen <2.0 (<2.0) mg/dL Ur Leukocyte Esterase Negative (Negative) Urine RBC 1 (0-5) /hpf Urine WBC 2 (0-5) /hpf Ur Squamous Epith Cells 7 H (0-4) /hpf Urine Bacteria Rare H (None) /hpf Urine Mucus Rare H (None) /hpf Urine HCG, Qual Not Detected (Not Detectd) 04/10/20 Range/Units 12:06 WBC (3.8-10.6) k/uL RBC (3.80-5.40) m/uL Hgb (11.4-16.0) gm/dL Hct (34.0-46.0) % MCV (80.0-100.0) fL MCH (25.0-35.0) pg MCHC (31.0-37.0) g/dL RDW (11.5-15.5) % Plt Count (150-450) k/uL MPV Neutrophils % % Lymphocytes % % Monocytes % % Eosinophils % % Basophils % % Neutrophils # (1.3-7.7) k/uL Lymphocytes # (1.0-4.8) k/uL Monocytes # (0-1.0) k/uL Eosinophils # (0-0.7) k/uL Basophils # (0-0.2) k/uL Sodium 136 L (137-145) mmol/L Potassium 4.6 (3.5-5.1) mmol/L Chloride 104 (98-107) mmol/L Carbon Dioxide 28 (22-30) mmol/L Anion Gap 4 mmol/L BUN 10 (7-17) mg/dL Creatinine 0.60 (0.52-1.04) mg/dL Est GFR (CKD-EPI)AfAm >90 (>60 ml/min/1.73 sqM) Est GFR (CKD-EPI)NonAf >90 (>60 ml/min/1.73 sqM) Glucose 101 H (74-99) mg/dL Calcium 9.5 (8.4-10.2) mg/dL Total Bilirubin 0.8 (0.2-1.3) mg/dL AST 34 (14-36) U/L ALT 20 (4-34) U/L Alkaline Phosphatase 75 (38-126) U/L Total Protein 7.9 (6.3-8.2) g/dL Albumin 4.6 (3.5-5.0) g/dL Amylase 102 (30-110) U/L Lipase 104 (23-300) U/L Urine Color Urine Appearance (Clear) Urine pH (5.0-8.0) Ur Specific [place] (1.001-1.035) Urine Protein (Negative) Urine Glucose (UA) (Negative) Urine Ketones (Negative) Urine Blood (Negative) Urine Nitrite (Negative) Urine Bilirubin (Negative) Urine Urobilinogen (<2.0) mg/dL Ur Leukocyte Esterase (Negative) Urine RBC (0-5) /hpf Urine WBC (0-5) /hpf Ur Squamous Epith Cells (0-4) /hpf Urine Bacteria (None) /hpf Urine Mucus (None) /hpf Urine HCG, Qual (Not Detectd) Disposition Clinical Impression: Enteritis, Upper abdominal pain Disposition: HOME SELF-CARE Condition: Good Instructions (If sedation given, give patient instructions): Abdominal Pain (ED) Additional Instructions: Please use medication as discussed. Please follow-up with family doctor in the next 2 days. Please return to emergency room if the symptoms increase or worsen or for any other concerns. Prescriptions: Pantoprazole Sodium [Protonix] 40 mg PO DAILY 7 Days #7 tablet. Ondansetron Odt [Zofran Odt] 4 mg PO Q8HR PRN 7 Days #21 tab PRN Reason: Nausea Is patient prescribed a controlled substance at d/c from ED?: No Referrals: Dionicio Alexandra MD [Primary Care Provider] - 1-2 days Sweetie Marshall MD [STAFF PHYSICIAN] - 1-2 days Time of Disposition: 13:25
--- NOTE | 2020-04-10 13:15 | CT ---
EXAMINATION TYPE: CT abdomen pelvis w con DATE OF EXAM: 04/10/2020 COMPARISON: 03/01/2016 HISTORY: 34-year-old female with right-sided upper abdominal pain radiating into shoulder. Hx Crohn's . TECHNIQUE: Contiguous axial scanning of the abdomen and pelvis following administration of 100 ml Iso gibran 300 IV contrast. Delayed images through the kidneys and coronal/sagittal reconstructions perform ed. CT DLP: 959 mGycm Automated exposure control for dose reduction was used. FINDINGS: Heart normal size without pericardial effusion. Lung bases clear without pleural effusion. No focal liver lesion or biliary ductal dilatation. Portal venous system is patent. Cholecystectomy clips. Adrenal glands, right kidney with extrarenal pelvis, left kidney, spleen, and pancreas appear within normal limits. No dilated small bowel, free fluid, or free air. Scattered nonenlarged mesenteric lymph nodes. Some scattered fluid-filled small bowel loops in the abdomen are noted. Normal appendix. Mild stool burden. No pericolonic inflammatory change. Bladder is collapsed. Uterus anteverted. IUD is a peripherally situated within the uterine cavity. Kehinde th ovaries are visualized with follicular change. Small amount of cul-de-sac free fluid likely physio logic. Bones: Mild osteitis pubis. No osseous destructive process. IMPRESSION: 1. SOME SCATTERED FLUID-FILLED SMALL BOWEL LOOPS THROUGHOUT THE ABDOMEN ARE NONSPECIFIC. FINDINGS MAY REPRESENT A MILD ENTERITIS. 2. STATUS POST CHOLECYSTECTOMY. 3. IUD IN APPROPRIATE POSITION. SMALL AMOUNT OF CUL-DE-SAC FREE FLUID LIKELY PHYSIOLOGIC.
[2020-04-10] MEDS ORDERED: PANTOPRAZOLE 40 MG/10 ML VIAL IVP STA (13:24)
[2020-04-10 13:41] VITALS: BP 104/66; PULSE 71; RESP 18; TEMP 98.3
== END 2020-04-10 13:45 | disposition home or self-care (01) ==
LOC: EC 11:34
DX: K52.9 Noninfective gastroenteritis and colitis, unspecified (principal); Z88.5 Allergy status to narcotic agent; Z90.49 Acquired absence of other specified parts of digestive tract
CPT/HCPCS: 36415; 80053; 82150; 83690; 85025; 81001; 81025; 74177; 99284; 96374; 96375; J2405; C9113; Q9967

== ENCOUNTER → 2020-08-12 | Outpatient (CLI) | payer BC ==
--- NOTE | 2020-08-12 13:49 | US ---
EXAMINATION TYPE: US thyroid st tissue head/neck DATE OF EXAM: 08/12/2020 COMPARISON: NONE CLINICAL HISTORY: R13.10 Dysphagia, unspecified. GLAND SIZE: Right Lobe: 3.9 x 1.3 x 1.4 cm Overall Parenchyma: homogenous Left Lobe: 4.0 x 1.2 x 1.2 cm Overall Parenchyma: homogeneous Isthmus Thickness: 0.3 cm NODULES RIGHT: # of nodules measured on right: 0 LEFT: # of nodules measured on left: 0 ISTHMUS: # of nodules measured in the isthmus: 0 Bilateral neck scanned, no evidence of lymphadenopathy. IMPRESSION: No evidence of solid or cystic thyroid nodule. 2017 ACR TI-RADS LEVEL: TR-RADS 1 - BENIGN: No FNA *Highest TI-RADS level nodule reported
== END | disposition home or self-care (01) ==
LOC: RADUSWWP 13:25
PROVIDERS: ATTEND Family Medicine
DX: R13.10 Dysphagia, unspecified (principal)
CPT/HCPCS: 76536

== ENCOUNTER 2020-09-01 08:23 | Emergency (ER) | payer BC, OTHER ==
[2020-09-01 08:30] VITALS: RESP 16; TEMP 98.1
[2020-09-01] MEDS ORDERED: KETOROLAC 15 MG/ML 1 ML VIAL IVP STA (08:49)
--- NOTE | 2020-09-01 09:00 | ED ---
SOB HPI - General Chief Complaint: Shortness of Breath Stated Complaint: Difficulty Breathing/Swallowing Time Seen by Provider: 09/01/20 08:31 Source: patient Mode of arrival: ambulatory Limitations: no limitations - History of Present Illness Initial Comments: 35-year-old female presents to the emergency department with chief complaint of shortness of breath. States that her symptoms are located in the right upper chest where she feels reproducible chest pain that appears to be exacerbated when taking deep breaths. She also reports exertional dyspnea. States this issue has been ongoing since January and has recently underwent multiple tests including an echocardiogram and stress test. She reports somewhat of pain is radiating to her right shoulder region. She reports some nausea but no vomiting. Reports some pain also along the right side of her neck and some difficulty swallowing. States this issue has also been ongoing since January. However, over the last her days she states her exertional dyspnea seems to have increasing severity. She denies any fevers or chills. States she is otherwise distally able to have normal oral intake without any difficulties. - Related Data Home Medications Medication Instructions Recorded Confirmed Cbd Oil 60mg/Ml 30 mg PO Q6H PRN 09/01/20 09/01/20 Previous Rx's Medication Instructions Recorded predniSONE 50 mg PO DAILY #5 tab 09/01/20 Allergies Allergy/AdvReac Type Severity Reaction Status Date / Time morphine Allergy Anaphylaxis(tongue Verified 09/01/20 09:26 & throat swelling,unconscious) Review of Systems ROS Statement: Those systems with pertinent positive or pertinent negative responses have been documented in the HPI. ROS Other: All systems not noted in ROS Statement are negative. Past Medical History Additional Past Medical History / Comment(s): states " is concerned with gastroparesis,having increased nausea and food not digensting properly", Crohn's disease, scoliosis History of Any Multi-Drug Resistant Organisms: None Reported Past Surgical History: Section, Cholecystectomy, Tonsillectomy Past Anesthesia/Blood Transfusion Reactions: No Reported Reaction Past Psychological History: No Psychological Hx Reported Smoking Status: Never smoker Past Alcohol Use History: None Reported Past Drug Use History: None Reported - Past Family History Father Family Medical History: No Reported History General Exam Limitations: no limitations General appearance: alert, in no apparent distress Head exam: Present: atraumatic, normocephalic, normal inspection Eye exam: Present: normal appearance, PERRL, EOMI Pupils: Present: normal accommodation ENT exam: Present: normal exam, normal oropharynx, mucous membranes moist Neck exam: Present: normal inspection, tenderness (Some tenderness along the right side of her neck.), full ROM Respiratory exam: Present: normal lung sounds bilaterally. Absent: respiratory distress, wheezes, rales, rhonchi, stridor Cardiovascular Exam: Present: regular rate, normal rhythm, normal heart sounds. Absent: systolic murmur Extremities exam: Present: normal inspection, full ROM, normal capillary refill. Absent: tenderness, pedal edema, joint swelling Back exam: Present: normal inspection, full ROM. Absent: tenderness, CVA tenderness (R), CVA tenderness (L), muscle spasm, paraspinal tenderness, vertebral tenderness Neurological exam: Present: alert, oriented X3 Psychiatric exam: Present: normal affect, normal mood Skin exam: Present: warm, dry, intact, normal color Course Vital Signs 09/01/20 09/01/20 08:24 09:30 Temperature 98.1 F Pulse Rate 96 83 Respiratory 16 16 Rate Blood Pressure 142/88 123/73 O2 Sat by Pulse 100 98 Oximetry Medical Decision Making - Medical Decision Making 35-year-old female presents to the emergency department with chief complaint of shortness of breath. On physical examination, reproducible right upper chest pain. Patient does not appear to be in any respiratory distress. Able to finish full sentences without any difficulty. Vital signs within normal limits. CBC CMP unremarkable. Coags within normal limits. Considering her symptoms, I I obtained a CT angiogram which showed no signs of pulmonary embolism. I also give the patient IV fluids and analgesia. on reevaluation, she reports improvement in symptoms. Also prescribed a short course of steroids. She had no difficulties swallowing while in the ED. Return parameters were thoroughly discussed the patient is sitting ago. Case discussed with Dr. Orta. - Lab Data Result diagrams: 09/01/20 09:06 09/01/20 09:06 Lab Results 09/01/20 09/01/20 09/01/20 Range/Units 09:06 09:06 09:06 WBC 6.8 (3.8-10.6) k/uL RBC 4.77 (3.80-5.40) m/uL Hgb 11.9 (11.4-16.0) gm/dL Hct 36.8 (34.0-46.0) % MCV 77.1 L (80.0-100.0) fL MCH 25.0 (25.0-35.0) pg MCHC 32.4 (31.0-37.0) g/dL RDW 15.7 H (11.5-15.5) % Plt Count 219 (150-450) k/uL MPV 7.0 Neutrophils % 81 % Lymphocytes % 13 % Monocytes % 5 % Eosinophils % 0 % Basophils % 1 % Neutrophils # 5.5 (1.3-7.7) k/uL Lymphocytes # 0.9 L (1.0-4.8) k/uL Monocytes # 0.3 (0-1.0) k/uL Eosinophils # 0.0 (0-0.7) k/uL Basophils # 0.0 (0-0.2) k/uL Microcytosis Slight PT 10.7 (9.0-12.0) sec INR 1.0 (<1.2) APTT 24.9 (22.0-30.0) sec Sodium 138 (137-145) mmol/L Potassium 3.6 (3.5-5.1) mmol/L Chloride 109 H (98-107) mmol/L Carbon Dioxide 21 L (22-30) mmol/L Anion Gap 8 mmol/L BUN 9 (7-17) mg/dL Creatinine 0.69 (0.52-1.04) mg/dL Est GFR (CKD-EPI)AfAm >90 (>60 ml/min/1.73 sqM) Est GFR (CKD-EPI)NonAf >90 (>60 ml/min/1.73 sqM) Glucose 107 H (74-99) mg/dL Calcium 9.2 (8.4-10.2) mg/dL Total Bilirubin 0.4 (0.2-1.3) mg/dL AST 22 (14-36) U/L ALT 14 (4-34) U/L Alkaline Phosphatase 90 (38-126) U/L Troponin I (0.000-0.034) ng/mL Total Protein 6.9 (6.3-8.2) g/dL Albumin 4.3 (3.5-5.0) g/dL 09/01/20 Range/Units 09:06 WBC (3.8-10.6) k/uL RBC (3.80-5.40) m/uL Hgb (11.4-16.0) gm/dL Hct (34.0-46.0) % MCV (80.0-100.0) fL MCH (25.0-35.0) pg MCHC (31.0-37.0) g/dL RDW (11.5-15.5) % Plt Count (150-450) k/uL MPV Neutrophils % % Lymphocytes % % Monocytes % % Eosinophils % % Basophils % % Neutrophils # (1.3-7.7) k/uL Lymphocytes # (1.0-4.8) k/uL Monocytes # (0-1.0) k/uL Eosinophils # (0-0.7) k/uL Basophils # (0-0.2) k/uL Microcytosis PT (9.0-12.0) sec INR (<1.2) APTT (22.0-30.0) sec Sodium (137-145) mmol/L Potassium (3.5-5.1) mmol/L Chloride (98-107) mmol/L Carbon Dioxide (22-30) mmol/L Anion Gap mmol/L BUN (7-17) mg/dL Creatinine (0.52-1.04) mg/dL Est GFR (CKD-EPI)AfAm (>60 ml/min/1.73 sqM) Est GFR (CKD-EPI)NonAf (>60 ml/min/1.73 sqM) Glucose (74-99) mg/dL Calcium (8.4-10.2) mg/dL Total Bilirubin (0.2-1.3) mg/dL AST (14-36) U/L ALT (4-34) U/L Alkaline Phosphatase (38-126) U/L Troponin I <0.012 (0.000-0.034) ng/mL Total Protein (6.3-8.2) g/dL Albumin (3.5-5.0) g/dL Disposition Clinical Impression: Dyspnea, Atypical chest pain Disposition: HOME SELF-CARE Condition: Stable Instructions (If sedation given, give patient instructions): Chest Pain (DC) Additional Instructions: Take prescribed medication as directed. Follow with her primary care physician. Return to emergency department if symptoms worsen. Prescriptions: predniSONE 50 mg PO DAILY #5 tab Is patient prescribed a controlled substance at d/c from ED?: No Referrals: Dionicio Alexandra MD [Primary Care Provider] - 1-2 days Time of Disposition: 10:32
[2020-09-01 09:20] LABS: Basophils % (A) 1 %; Eosinophils % (A) 0 %; HCT 36.8 % (34.0-46.0); HGB 11.9 gm/dL (11.4-16.0); Lymphocytes # (A) 0.9 k/uL (1.0-4.8); Lymphocytes % (A) 13 %; MCHC 32.4 g/dL (31.0-37.0); MCV 77.1 fL (80.0-100.0); Microcytosis Slight; Monocytes # (A) 0.3 k/uL (0-1.0); Monocytes % (A) 5 %; Neutrophils # (A) 5.5 k/uL (1.3-7.7); Neutrophils % (A) 81 %; Platelet Count 219 k/uL (150-450); RBC 4.77 m/uL (3.80-5.40); RDW 15.7 % (11.5-15.5); WBC 6.8 k/uL (3.8-10.6)
[2020-09-01 09:30] LABS: ALT 14 U/L (4-34); AST 22 U/L (14-36); African American GFR (CKD) >90 (>60 ml/min/1.73 sqM); Albumin 4.3 g/dL (3.5-5.0); Alkaline Phosphatase 90 U/L (38-126); Anion Gap 8 mmol/L; Blood Urea Nitrogen 9 mg/dL (7-17); Calcium 9.2 mg/dL (8.4-10.2); Carbon Dioxide 21 mmol/L (22-30); Chloride 109 mmol/L (98-107); Glucose 107 mg/dL (74-99); Non-African American GFR(CKD) >90 (>60 ml/min/1.73 sqM); Potassium 3.6 mmol/L (3.5-5.1); Sodium 138 mmol/L (137-145); Total Bilirubin 0.4 mg/dL (0.2-1.3); Total Protein 6.9 g/dL (6.3-8.2)
[2020-09-01 09:33] VITALS: BP 123/73
[2020-09-01 09:34] LABS: Partial Thromboplastin Time 24.9 sec (22.0-30.0); Prothrombin Time 10.7 sec (9.0-12.0)
--- NOTE | 2020-09-01 10:12 | XR ---
EXAMINATION TYPE: XR chest 2V DATE OF EXAM: 09/01/2020 COMPARISON: Chest x-ray 11/21/2011 HISTORY: Difficulty breathing, shortness of breath TECHNIQUE: Frontal and lateral views of the chest are obtained. FINDINGS: There is no focal air space opacity, pleural effusion, or pneumothorax seen. The cardiac silhouette size is within normal limits. Overlying leads. Surgical clips present in the right upper quadrant. The osseous structures are intact. IMPRESSION: No acute cardiopulmonary process.
--- NOTE | 2020-09-01 10:24 | CT ---
EXAMINATION TYPE: CT chest angio for PE DATE OF EXAM: 09/01/2020 COMPARISON: Chest x-ray 09/01/2020 HISTORY: SOB, trouble swallowing for 4 months (getting worse) CT DLP: 306.5 mGycm Automated exposure control for dose reduction was used. CONTRAST: CT Chest for pulmonary embolism performed with with IV Contrast, patient injected with 100 mL of Isov ue 370. FINDINGS: LUNGS: The lungs are grossly clear, there is no concerning parenchymal mass or nodule identified. T here is no pleural effusion or pneumothorax seen. The tracheobronchial tree is patent. MEDIASTINUM: There is satisfactory enhancement of the pulmonary artery and its branches, there is no CT evidence for pulmonary embolism. There are no greater than 1 cm hilar or mediastinal lymph nodes. No pericardial effusion is seen. AORTA: No additional significant abnormality is seen. OTHER: No patient is post cholecystectomy. IMPRESSION: No evident pulmonary embolism.
[2020-09-01 11:30] VITALS: PULSE 77
== END 2020-09-01 11:28 | disposition home or self-care (01) ==
LOC: EC 08:23
DX: R06.09 Other forms of dyspnea (principal); R07.89 Other chest pain; M54.2 Cervicalgia; R13.10 Dysphagia, unspecified; R11.0 Nausea; Z79.52 Long term (current) use of systemic steroids
CPT/HCPCS: 36415; 93005; 80053; 84484; 85025; 85610; 85730; 71046; 71275; 99285; 96374; J1885; Q9967

== ENCOUNTER → 2020-09-29 | Outpatient (CLI) | payer BC ==
--- NOTE | 2020-09-29 17:00 | FL ---
EXAMINATION TYPE: FL barium swallow DATE OF EXAM: 09/29/2020 CLINICAL HISTORY: 35-year-old with history of reflux and solid foods getting stuck in throat for 8 mo nths. TECHNIQUE: A double contrast esophagram is performed utilizing air and barium. A total of 6 seconds of fluoroscopic time was utilized during procedure. COMPARISON: None FINDINGS: The patient swallowed crystals with water. Thick barium was given. The patient could not sw allow the thick barium. No diagnostic study could be performed. The patient refused exam. IMPRESSION: 1. The patient could not swallow the barium for the study to be performed. The patient refused the ex am.
== END | disposition home or self-care (01) ==
LOC: RADUSWWP 09:44
PROVIDERS: ATTEND Internal Medicine Gastroenterology
DX: K21.9 Gastro-esophageal reflux disease without esophagitis (principal)

== ENCOUNTER → 2020-10-16 | Outpatient (CLI) | payer BC ==
--- NOTE | 2020-10-16 17:08 | FL ---
EXAMINATION TYPE: FL barium swallow w video DATE OF EXAM: 10/16/2020 COMPARISON: NONE HISTORY: Dysphasia difficulty swallowing TECHNIQUE: Fluoroscopy. FINDINGS: Fluoroscopic guidance was provided for the procedure performed in conjunction with the [facility] [place] pathology department. Please see complete report forthcoming from the Speech Pathology departmen t. Various consistencies from thin liquid to solids were administered. Fluoroscopy time 1 minute 10 seconds. Number of images: 0. No aspiration or penetration was evident. No significant pooling was observed in the vallecula. There was normal propulsion of the bolus. IMPRESSION: 1. Normal modified barium swallow
== END | disposition home or self-care (01) ==
LOC: RADFLMAIN 10:59
PROVIDERS: ATTEND Otolaryngology
DX: R13.10 Dysphagia, unspecified (principal)
CPT/HCPCS: 74230

== ENCOUNTER 2020-11-03 08:51 | Day surgery (SDC) | payer BC ==
[2020-10-31 11:01] VITALS: BMI 31.1
[~2020-11-03 08:51] MED LIST changes: -GLUCAGON 1 MG/ML VIAL IM STA; +LACTATED RINGERS 1,000 ML IV SCH
[2020-11-03 09:24] VITALS: RESP 16; TEMP 98.2
[2020-11-03] MEDS ORDERED: PROPOFOL 10 MG/ML 20 ML VIAL IV ONE (09:32)
[2020-11-03] MEDS ORDERED: LIDOCAINE 1% INJ 10MG/ML (20 ML MDV) ONE (09:32)
--- NOTE | 2020-11-03 09:54 | P.PCN ---
Date of Procedure: 11/03/20 Description of Procedure: BRIEF HISTORY: Patient is a 35-year-old female presenting for outpatient esophagogastroduodenoscopy for symptoms of dysphagia and esophageal dysphagia. Patient was seen in the clinic reporting symptoms of passive regurgitation, epigastric abdominal pain and worsening dysphagia over the past 6 months. Predominantly to solid foods. Currently on Protonix therapy. PROCEDURE PERFORMED: Esophagogastroduodenoscopy with biopsy. PREOPERATIVE DIAGNOSIS: Dysphagia, esophageal dysphagia. ESTIMATED BLOOD LOSS: Minimal. IV sedation per anesthesia. PROCEDURE: After informed consent was obtained, the patient was brought into the endoscopy unit. IV sedation was administered by Anesthesia under continuous monitoring. Initially the Olympus GIF-190 video endoscope was inserted into the mouth. Esophagus intubated without any difficulty. It was gradually advanced into the stomach and duodenum and carefully examined. The bulb and the second part of the duodenum appeared normal, with biopsies taken to rule out celiac sprue. The scope at this time was withdrawn to the stomach, adequately insufflated with air, and upon careful examination, mucosa of the antrum, body, cardia and the fundus appeared normal, except for some mild punctate erythema in the antrum and body suggestive of mild gastritis with biopsies taken. The scope was then withdrawn into the esophagus. The GE junction was located at 36 cm from the incisors. The esophagus appeared normal, with biopsies of the lower esophagus and midesophagus. There were no erosions or ulcerations seen and the patient tolerated the procedure well. IMPRESSION: 1. Mild gastritis. 2. Biopsies of the duodenum, antrum and body, lower esophagus and midesophagus. RECOMMENDATIONS: The findings of this examination were discussed with the patient and her family. Okay to resume diet. Okay to resume medications. Await pathology from biopsies. Follow up in the GI clinic as scheduled. Continue current medical management for now.
[2020-11-03 10:12] VITALS: BP 118/79; PULSE 56
== END 2020-11-03 10:39 | disposition home or self-care (01) ==
LOC: ORWHC2ENDO 08:51
PROVIDERS: ATTEND Internal Medicine
DX: K29.50 Unspecified chronic gastritis without bleeding (principal); K20.90 Esophagitis, unspecified without bleeding
CPT/HCPCS: 43239; 81025; 88305; J2001; J2704

== ENCOUNTER → 2020-11-21 | Outpatient (CLI) | payer BC ==
--- NOTE | 2020-11-21 08:18 | US ---
EXAMINATION TYPE: US abdomen complete DATE OF EXAM: 11/21/2020 COMPARISON: CT abdomen and pelvis April 10, 2020 CLINICAL HISTORY: R10.9 ABD PAIN. Pt states generalized ABD pain, GB removed 9-10 yrs ago EXAM MEASUREMENTS: Liver Length: 14.6 cm CBD: 0.5 cm Spleen: 10.5 cm Right Kidney: 10.5 x 4.0 x 4.5 cm Left Kidney: 9.6 x 4.7 x 4.8 cm Pancreas: wnl, tail obscured by overlying bowel gas Liver: wnl Gallbladder: Surgically absent Evidence for sonographic Espinal's sign: No CBD: wnl Spleen: wnl Right Kidney: wnl, lower pole gassed out Left Kidney: wnl, lower pole gassed out Upper IVC: wnl Abd Aorta: wnl No abnormality visualized to account for pt's symptoms The liver is homogenous. The intrahepatic portion of the IVC and visualized abdominal aorta are with in normal limits. Gallbladder is surgically absent. Common bile duct is unremarkable. The visualize d portions of the pancreas are homogenous. Portions of distal body and tail obscured by overlying bow el gas on images saved. The spleen is unremarkable. Kidneys are symmetric and free of hydronephrosis . No renal lesions are seen. IMPRESSION: Slightly suboptimal study without acute finding identified.
== END | disposition home or self-care (01) ==
LOC: RADUSWWP 07:39
PROVIDERS: ATTEND Internal Medicine Gastroenterology
DX: R10.84 Generalized abdominal pain (principal); Z90.49 Acquired absence of other specified parts of digestive tract
CPT/HCPCS: 76700

== ENCOUNTER → 2020-12-12 | Outpatient (CLI) | payer BC ==
[2020-12-12 21:47] LABS: African American GFR (CKD) 97.4 (60.0-200.0); Albumin 4.6 g/dL (3.80-4.90); Albumin/Globulin Ratio 2.19 (1.60-3.17); Anion Gap 5.7 mmol/L (4.00-12.00); BUN/Creat Ratio 8.89 Ratio (12.00-20.00); Calcium 9.1 mg/dL (8.7-10.3); Carbon Dioxide 25.3 mmol/L (21.6-31.8); Globulin 2.1 g/dL (1.6-3.3); Potassium 4.3 mmol/L (3.5-5.5); Total Bilirubin 0.3 mg/dL (0.3-1.2); Total Protein 6.7 g/dL (6.2-8.2)
== END | disposition home or self-care (01) ==
LOC: LABWHC1 09:46
PROVIDERS: ATTEND Family Medicine
DX: K29.70 Gastritis, unspecified, without bleeding (principal); R13.10 Dysphagia, unspecified
CPT/HCPCS: 36415; 80053; 82150; 83690

== ENCOUNTER → 2021-06-12 | Outpatient (CLI) | payer BC ==
--- NOTE | 2021-06-12 09:03 | US ---
EXAMINATION TYPE: US abdomen complete DATE OF EXAM: 06/12/2021 COMPARISON: US, CT CLINICAL HISTORY: R10.11 RT UPPER QUADRANT PAIN. Chronic right lateral abdomen pain; gallbladder brandie silvino EXAM MEASUREMENTS: Liver Length: 11.6 cm Gallbladder Wall: surgically removed CBD: 0.3 cm Spleen: 9.7 cm Right Kidney: 11.1x 5.2 x +3.5 cm Left Kidney: 10.1 x 5.7 x 4.9 cm Pancreas: wnl Liver: wnl Gallbladder: surgically absent Evidence for sonographic Espinal's sign: no CBD: wnl Spleen:small hyperechoic foci noted within spleen may be granulomas Right Kidney: No hydronephrosis or masses seen Left Kidney: No hydronephrosis or masses seen Upper IVC: wnl Abd Aorta: wnl The liver is homogenous. The intrahepatic portion of the IVC and proximal abdominal aorta are within normal limits. Common bile duct is unremarkable. The visualized portions of the pancreas are homog enous. Kidneys are symmetric and free of hydronephrosis. No renal lesions are seen. IMPRESSION: No significant abnormality seen.
== END | disposition home or self-care (01) ==
LOC: RADUSWWP 07:29
PROVIDERS: ATTEND Family Medicine
DX: R10.11 Right upper quadrant pain (principal); Z90.49 Acquired absence of other specified parts of digestive tract
CPT/HCPCS: 76700

== ENCOUNTER → 2021-06-16 | Outpatient (CLI) | payer BC ==
--- NOTE | 2021-06-16 09:18 | MM ---
Reason for exam: clinical finding. Baseline mammogram. History: Family history of breast cancer in aunt. Took hormonal contraceptives for 20 years. Indicated problem(s): pain in both breasts. Physical Findings: A clinical breast exam by your physician is recommended on an annual basis and results should be correlated with mammographic findings. MG 3D Diag Mammo W/Cad ИВАН Bilateral CC and MLO view(s) were taken. There are scattered fibroglandular densities. There is no discrete abnormality. These results were verbally communicated with the patient and result sheet given to the patient on 06/16/21. ASSESSMENT: Incomplete: need additional imaging evaluation, BI-RAD 0 RECOMMENDATION: Ultrasound of the right breast. (for pain as ordered)
--- NOTE | 2021-06-16 09:20 | USB ---
Reason for exam: additional evaluation requested from abnormal screening. History: Family history of breast cancer in aunt. Took hormonal contraceptives for 20 years. Physical Findings: A clinical breast exam by your physician is recommended on an annual basis and results should be correlated with mammographic findings. US Breast RT Right complete breast ultrasound includes all four quadrants, the retroareolar region and axilla. Finding demonstrates no cystic or solid lesion seen. These results were verbally communicated with the patient and result sheet given to the patient on 06/16/21. ASSESSMENT: Benign, BI-RAD 2 RECOMMENDATION: Routine screening mammogram of both breasts at age 42. (unless clinical indication to start sooner) Manage on a clinical basis with regard to right breast pain.
== END | disposition home or self-care (01) ==
LOC: RADMAMWWP 06:58
PROVIDERS: ATTEND Family Medicine
DX: N64.4 Mastodynia (principal); Z80.3 Family history of malignant neoplasm of breast
CPT/HCPCS: 77062; 77066

== ENCOUNTER → 2021-07-17 | Outpatient (CLI) | payer BC ==
--- NOTE | 2021-07-17 09:16 | USB ---
Reason for exam: clinical finding. History: Family history of breast cancer in aunt. Took hormonal contraceptives for 20 years. Physical Findings: A clinical breast exam by your physician is recommended on an annual basis and results should be correlated with mammographic findings. US Breast RT Right complete breast ultrasound includes all four quadrants, the retroareolar region and axilla. Finding demonstrates no cystic or solid lesion seen. Entire right breast scanned including axilla. Results were given to the patient verbally at the time of the exam. ASSESSMENT: Negative, BI-RAD 1 RECOMMENDATION: Routine screening mammogram of both breasts at age 42. Manage on a clinical basis with regard to pain.
== END | disposition home or self-care (01) ==
LOC: RADUSWWP 07:40
PROVIDERS: ATTEND Family Medicine
DX: N64.4 Mastodynia (principal); Z80.3 Family history of malignant neoplasm of breast

== ENCOUNTER → 2021-07-25 | Outpatient (CLI) | payer BC ==
--- NOTE | 2021-07-26 12:53 | MR ---
MRI CERVICAL SPINE and brain: CLINICAL HISTORY: M 62.1, headache, swelling and neck pain TECHNIQUE: Multiplanar, multisequence imaging of the cervical spine and brain is performed without IV contrast COMPARISON: None FINDINGS: Brain MRI: There is no restricted diffusion. There is no hemorrhage or hydrocephalus. Pineal gland cy st noted incidentally. Corpus callosum, pituitary, cervical medullary junction, cerebellopontine angl es are normal. There are expected vascular flow voids. Mild mucosal disease present in the maxillary sinuses. Orbits show symmetric appearance. Cervical spine MRI: Sagittal images of the cervical spine show the craniocervical junction to appear within normal limits. The cervical and upper thoracic spinal cord is normal in course, caliber, and signal. Vertebral alignment is anatomic. The vertebral body and intravertebral disk heights are nor mal, some mild loss of disc signal C4-5, C5-6 consistent with disc desiccation, there is mild spondyl osis C5-6. The bone marrow signal intensity is within normal limits. Axial images show there is no significant focal disk disease, spinal canal stenosis, neural foraminal narrowing, or spinal cord compromise with the exception of some foraminal encroachment at C5-6 due t o uncovertebral joint hypertrophy IMPRESSION: Normal brain MRI without contrast, mild sinus disease. Mild degenerative disc disease C5 -6
== END | disposition home or self-care (01) ==
LOC: RADMRIMAIN 09:14
PROVIDERS: ATTEND Family Medicine
DX: M50.322 Other cervical disc degeneration at C5-C6 level (principal); J32.9 Chronic sinusitis, unspecified
CPT/HCPCS: 70551; 72141

== ENCOUNTER → 2021-07-28 | Outpatient (CLI) | payer BC ==
--- NOTE | 2021-07-28 19:42 | US ---
EXAMINATION TYPE: US thyroid st tissue head/neck DATE OF EXAM: 07/28/2021 COMPARISON: US dated 08/12/2020 CLINICAL HISTORY: R1310. dysphagia GLAND SIZE: Right Lobe: 4.6 x 2.8 x 1.3 cm Overall Parenchyma: homogenous Left Lobe: 4.1 x 1.2 x 1.2 cm Overall Parenchyma: homogeneous Isthmus Thickness: 0.21 cm NODULES RIGHT: # of nodules measured on right: 0 LEFT: # of nodules measured on left: 0 ISTHMUS: # of nodules measured in the isthmus: 0 Bilateral neck scanned, normal node noted right lateral neck. Patient states swelling right lateral neck. Multiple images taken over area of concern, no definite a bnormality noted. Homogeneous normal-sized thyroid without discrete nodule. IMPRESSION: As above. Unremarkable study. No significant change from prior.
== END | disposition home or self-care (01) ==
LOC: RADUSWWP 13:58
PROVIDERS: ATTEND Family Medicine
DX: R13.10 Dysphagia, unspecified (principal)
CPT/HCPCS: 76536

== ENCOUNTER → 2021-09-16 | Outpatient (CLI) | payer BC ==
--- NOTE | 2021-09-16 10:01 | CT ---
EXAMINATION TYPE: CT chest w con DATE OF EXAM: 09/16/2021 COMPARISON: CT dated 09/01/2020 HISTORY: Abnormal weight loss and bilateral clavicular lymph node swelling. CT DLP: 228.9 mGycm Automated exposure control for dose reduction was used. TECHNIQUE: CT scan of the chest is performed with IV Contrast, patient injected with 100ml mL of Isovue 300. FINDINGS: LUNGS: The lungs are grossly clear, there is no concerning parenchymal mass or nodule identified. T here is no pleural effusion or pneumothorax seen. The tracheobronchial tree is patent. MEDIASTINUM: There are no greater than 1 cm hilar or mediastinal lymph nodes. No cardiomegaly. Unrem arkable major mediastinal vessels. No pericardial effusion is seen. OTHER: Previous cholecystectomy. No aggressive bone lesion. IMPRESSION: No pathologically enlarged or suspicious lymph nodes in the chest. No significant pulmonary abnormali ty identified.
== END | disposition home or self-care (01) ==
LOC: RADCTMAIN 07:28
PROVIDERS: ATTEND Internal Medicine Hematology & Oncology
DX: R07.9 Chest pain, unspecified (principal); R63.4 Abnormal weight loss
CPT/HCPCS: 71260; Q9967

== ENCOUNTER → 2021-12-04 | Outpatient (CLI) | payer BC ==
[2021-12-04 22:38] LABS: Basophils # (A) 0.03 X 10*3/uL (0.00-0.10); Basophils % (A) 0.5 %; Eosinophils # (A) 0.06 X 10*3/uL (0.04-0.35); HCT 41.5 % (37.2-46.3); HGB 13.4 g/dL (12.0-15.0); Immature Grans, Automated 0.2 %; Lymphocytes # (A) 1.58 X 10*3/uL (0.90-5.00); Lymphocytes % (A) 25.4 %; MCH 27.3 pg (27.0-32.0); MCHC 32.3 g/dL (32.0-37.0); MCV 84.5 fL (80.0-97.0); Mean Platelet Volume 11.4 fL (9.5-12.2); Monocytes # (A) 0.42 X 10*3/uL (0.20-1.00); Monocytes % (A) 6.8 %; NRBC Per 100 WBC 0 /100 WBCS (0.0-0.0); Neutrophils # (A) 4.11 X 10*3/uL (1.80-7.70); Neutrophils % (A) 66.1 %; Platelet Count 199 X 10*3/uL (140-440); RBC 4.91 X 10*6/uL (4.10-5.20); RDW 13.5 % (11.5-14.5); WBC 6.21 X 10*3/uL (4.50-10.00)
[2021-12-04 23:52] LABS: % Iron Saturation 11.51 (12.00-45.00)
== END | disposition home or self-care (01) ==
LOC: LABWHC1 14:09
PROVIDERS: ATTEND Nurse Practitioner Family
DX: D64.9 Anemia, unspecified (principal)
CPT/HCPCS: 36415; 83540; 83550; 85025

== ENCOUNTER → 2022-03-04 | Outpatient (CLI) | payer BC ==
[2022-03-04 22:40] LABS: Basophils # (A) 0.04 X 10*3/uL (0.00-0.10); Basophils % (A) 0.5 %; Eosinophils # (A) 0.06 X 10*3/uL (0.04-0.35); Eosinophils % (A) 0.8 %; HCT 41.8 % (37.2-46.3); HGB 13.6 g/dL (12.0-15.0); Immature Grans, Automated 0.3 %; Lymphocytes # (A) 2.07 X 10*3/uL (0.90-5.00); Lymphocytes % (A) 27.2 %; MCH 27.1 pg (27.0-32.0); MCHC 32.5 g/dL (32.0-37.0); MCV 83.4 fL (80.0-97.0); Mean Platelet Volume 10.5 fL (9.5-12.2); Monocytes # (A) 0.51 X 10*3/uL (0.20-1.00); Monocytes % (A) 6.7 %; NRBC Per 100 WBC 0 /100 WBCS (0.0-0.0); Neutrophils # (A) 4.91 X 10*3/uL (1.80-7.70); Neutrophils % (A) 64.5 %; Platelet Count 226 X 10*3/uL (140-440); RBC 5.01 X 10*6/uL (4.10-5.20); RDW 14.2 % (11.5-14.5); WBC 7.61 X 10*3/uL (4.50-10.00)
[2022-03-05 02:44] LABS: African American GFR (CKD) 111.5 (60.0-200.0); Albumin 4.8 g/dL (3.8-4.9); Albumin/Globulin Ratio 2.4 (1.60-3.17); Anion Gap 11.7 mmol/L (10.00-18.00); BUN/Creat Ratio 12.25 Ratio (12.00-20.00); Blood Urea Nitrogen 9.8 mg/dL (9.0-27.0); Calcium 10.1 mg/dL (8.7-10.3); Carbon Dioxide 25.3 mmol/L (20.0-27.5); Non-African American GFR(CKD) 96.2 (60.0-200.0); Potassium 4.4 mmol/L (3.5-5.5); Total Bilirubin 0.2 mg/dL (0.30-1.20); Total Protein 6.8 g/dL (6.2-8.2)
== END | disposition home or self-care (01) ==
LOC: LABWHC1 16:15
PROVIDERS: ATTEND Family Medicine
DX: R10.10 Upper abdominal pain, unspecified (principal); R11.2 Nausea with vomiting, unspecified; R51.9 Headache, unspecified; R20.2 Paresthesia of skin; R42 Dizziness and giddiness
CPT/HCPCS: 36415; 80053; 82150; 83690; 85025

== ENCOUNTER → 2023-02-25 | Outpatient (CLI) | payer BC ==
[2023-02-26 01:26] VITALS: BP 137/67; PULSE 100; RESP 18; TEMP 96.6
--- NOTE | 2023-02-27 11:09 | P.MSEPDOC ---
Presenting Problems - Arrival Data Date of Arrival on Unit: 02/25/23 Time of Arrival on Unit: 22:28 Mode of Transport: Wheelchair - Complaint OB-Reason for Admission/Chief Complaint: Possible Onset of Labor Comment: Pt stated she started feeling contractions 02/25/2023 at 1930. States they are 3-5 minutes apart, rating 7/10 pain. Medical History - Information : 6 Para: 4 Term: 4 : 0 Abortions: Spontaneous or Elective: 1 Number of Living Children: 4 - Gestational Age Gestational Age by WILTON (wks/days): 37 Weeks and 6 Days - History Complications: GDM Review of Systems - Review of Systems Constitutional: No problems Breast: No problems ENT: No problems Cardiovascular: No problems Respiratory: No problems Gastrointestinal: No problems Genitourinary: No problems Musculoskeletal: No problems Neurological: No problems Skin: No problems Vital Signs - Temperature Temperature: 96.6 F Temperature Source: Temporal Artery Scan - Pulse Pulse Oximetery Pulse Rate: 100 Pulse Assessment Method: Pulse Oximetry - Respirations Respiratory Rate: 18 Oxygen Delivery Method: Room Air O2 Sat by Pulse Oximetry: 98 - Blood Pressure Right Arm Blood Pressure: 137/67 Blood Pressure Mean: 90 Blood Pressure Source: Automatic Cuff Medical Screen Scoring - Cervical Exam Dilation (cm): 3 Effacement (%): 50 Station: -3 Membranes: Intact - Uterine Contractions Frequency From (mins): 3 Frequency To (mins): 8 Duration From (seconds): 50 Duration To (seconds): 90 Intensity: Mild Resting: Soft to palpation - Assessment - Baby A Baseline FHR: 125 Heart Rate - NICHD Category: Category I (Normal) NST: Reactive Physician Notification - Physician Notified Physician Notified Date: 02/25/23 Physician Notified Time: 23:48 Physician: Jorge Alberto Watkins New Order Received: Yes - Notification Comment Comment: Order to keep patient for another hour and recheck cervical for change. If no change, pt okay to D/C home, to call Dr Watkins with any change in pt or status. Maternal Triage Index - Maternal Triage Index Presenting for scheduled procedure w/no complaint: No - Stat/Priority 1 Stat Priority 1: No - Urgent/Priority 2 Urgent Priority 2: No - Prompt/Priority 3 Prompt Priority 3: Yes Criteria Met for Priority 3: Pt presented with c/o contractions starting 02/25/2023 at 1930 every 3-5 min, rating 7/10 pain Disposition - Disposition OB Disposition: Discharge to home Discharge Date: 02/26/23 Discharge Time: 00:49 I agree with the RN Medical Screening Exam: Yes Physician's MSE Comment: I have neither seen nor examined the patient. Case reviewed; plan agreed upon as documented in EMR&OBIX.: Yes Diagnosis: RELATED CONDITIONS, UNSPECIFIED, THIRD TRIMESTER
== END ==
LOC: FBPOP 22:28
PROVIDERS: ATTEND Obstetrics & Gynecology
DX: O47.1 False labor at or after 37 completed weeks of gestation (principal); O24.419 Gestational diabetes mellitus in pregnancy, unspecified control; Z3A.37 37 weeks gestation of pregnancy; Z88.5 Allergy status to narcotic agent
CPT/HCPCS: 59025; 99213

== ENCOUNTER 2023-03-02 04:30 | Inpatient (IN) | payer BC ==
[2023-03-02] MEDS ORDERED: METHYLERGONOVINE 0.2 MG/ML 1 ML AMP IM PRN (06:43)
[2023-03-02] MEDS ORDERED: TRANEXAMIC 1,000 MG/100ML-NACL 1,000 MG in EMPTY BAG 1 BAG IV PRN (06:43)
[2023-03-02] MEDS ORDERED: miSOPROStoL 200 MCG TAB PO PRN (06:43)
[2023-03-02] MEDS ORDERED: OXYTOCIN 10 UNIT/ML 1 ML VIAL IM PRN (06:43)
[2023-03-02] MEDS ORDERED: TERBUTALINE 1 MG/ML VIAL SQ PRN (06:43)
[2023-03-02] MEDS ORDERED: LIDOCAINE 0.5% (PF) 5 MG/ML (50 ML SDV) SQ PRN (06:43)
[2023-03-02] MEDS ORDERED: CARBOPROST TROMETHAMINE 250 MCG/ML 1 ML AMP IM PRN (06:43)
[2023-03-02] MEDS ORDERED: LACTATED RINGERS 1,000 ML IV SCH (06:45)
[2023-03-02] MEDS ORDERED: OXYTOCIN 30 UNITS/500 ML NS 30 UNIT in SALINE 1 500ML.BAG IV SCH (06:45)
[2023-03-02 07:04] LABS: Basophils % (A) 0 %; Eosinophils % (A) 0 %; HCT 36.3 % (34.0-46.0); HGB 11.7 gm/dL (11.4-16.0); Hypochromasia Moderate; Lymphocytes # (A) 1.7 k/uL (1.0-4.8); Lymphocytes % (A) 19 %; MCH 24.3 pg (25.0-35.0); MCHC 32.3 g/dL (31.0-37.0); MCV 75.2 fL (80.0-100.0); Mean Platelet Volume 8.5; Microcytosis Slight; Monocytes # (A) 0.4 k/uL (0-1.0); Monocytes % (A) 5 %; Neutrophils # (A) 6.7 k/uL (1.3-7.7); Neutrophils % (A) 74 %; Platelet Count 172 k/uL (150-450); Poikilocytosis Slight; RBC 4.82 m/uL (3.80-5.40)
--- NOTE | 2023-03-02 08:43 | P.HPOB ---
History of Present Illness H&P Date: 03/02/23 Chief Complaint: IUP @ 38 3/7 weeks, active labor This is a 37-year-old 6 para 0414 at 38-3/7 weeks, estimated due date of 03/13. Patient presents with complaints of regular painful contractions beginning at 1 AM. Patient presented to labor and delivery around 4 AM noted to be 4-5 cm dilated. Patient was admitted to labor and delivery. Patient has been receiving routine care. She has been diagnosed with gestational diabetes and has been well controlled with diet alone. On bloodwork this patient is a blood type of A+, rubella status immune, hepatitis B surface antigen negative, HIV negative, RPR is nonreactive, group beta strep culture negative. Review of Systems Constitutional: Denies chills, Denies fatigue, Denies fever Ears, nose, mouth and throat: Denies headache Respiratory: Denies dyspnea Gastrointestinal: Denies constipation, Denies diarrhea, Denies nausea, Denies vomiting Genitourinary: Reports Past Medical History Past Medical History: GERD/Reflux, Osteoarthritis (OA) Additional Past Medical History / Comment(s): diff swallowing food, increased acid reflux, issues digesting food, abdominal pain,bloating and nausea with occ vomiting, Crohn's disease, scoliosis, migraines, anemia, kidney stones History of Any Multi-Drug Resistant Organisms: None Reported Past Surgical History: Section, Cholecystectomy, Tonsillectomy Additional Past Surgical History / Comment(s): cysts and bengn mass removed from uterus Past Anesthesia/Blood Transfusion Reactions: No Reported Reaction Past Psychological History: No Psychological Hx Reported Smoking Status: Never smoker Past Alcohol Use History: None Reported Past Drug Use History: None Reported Additional Drug Use History / Comment(s): CBD oil daily - Past Family History Father Family Medical History: Cancer Medications and Allergies Home Medications Medication Instructions Recorded Confirmed Type Aspirin [Adult Low Dose Aspirin EC] 81 mg PO DAILY 02/25/23 03/02/23 History Ferrous Sulfate [Iron] 325 mg PO DAILY 02/25/23 03/02/23 History Vit No.179/Iron/Folic 1 tablet PO DAILY 02/25/23 03/02/23 History [ Tablet] Allergies Allergy/AdvReac Type Severity Reaction Status Date / Time morphine Allergy Severe Anaphylaxis(tongue Verified 03/02/23 04:43 & throat swelling,unconscious) Exam Osteopathic Statement: *. No significant issues noted on an osteopathic structural exam other than those noted in the History and Physical/Consult. Intake and Output 03/01/23 03/02/23 03/02/23 22:59 06:59 14:59 Other: # Voids 1 Weight 78.471 kg Targeted physical exam is done on this date, in general this a well-nourished well-developed female in no acute distress, breathing is noted to be nonlabored, heart has a regular rate and rhythm, abdomen is gravid and appropriate for gestational age, on cervical exam she is 5/70/-1 station amniotomy is performed and clear fluid was obtained. heart tones returned be category 1 and she is neelima irregularly Results Result Diagrams: 03/02/23 06:42 Abnormal Lab Results - Last 24 Hours (Table) 03/02/23 Range/Units 06:42 MCV 75.2 L (80.0-100.0) fL MCH 24.3 L (25.0-35.0) pg Assessment and Plan (1) Active labor Current Visit: Yes Status: Acute Code(s): BHG0625 - SNOMED Code(s): 597160115 (2) H/O vaginal after Current Visit: No Status: Acute Code(s): Z98.891 - HISTORY OF UTERINE SCAR FROM PREVIOUS SURGERY SNOMED Code(s): 672054481 (3) Term Current Visit: No Status: Acute Code(s): Z34.80 - ENCOUNTER FOR SUPRVSN OF NORMAL , UNSP TRIMESTER SNOMED Code(s): 44383119 Plan: This is 37yo at 38 3/7 weeks that presents in active labor. Patient was admitted to labor and delivery, amniotomy is preformed and clear fluid is obtained, options for analgesia discussed and she declines. Anticipate spontaneous vaginal delivery.
[2023-03-02] MEDS ORDERED: SIMETHICONE 80 MG CHEWABLE PO PRN (13:56)
[2023-03-02] MEDS ORDERED: BENZOCAINE/MENTHOL SPRAY 1 GM/SPRAY AEROSOL TOPICAL PRN (13:56)
[2023-03-02] MEDS ORDERED: LANOLIN CREAM 5 GM TUBE TOPICAL PRN (13:56)
[2023-03-02] MEDS ORDERED: ZOLPIDEM 5 MG TAB PO PRN (13:56)
[2023-03-02] MEDS ORDERED: HYDROCORTISONE 2.5% RECTAL CREAM 30 GM TUBE RECTAL PRN (13:56)
[2023-03-02] MEDS ORDERED: diphenhydrAMINE 50 MG CAP PO PRN (13:56)
[2023-03-02] MEDS ORDERED: ACETAMINOPHEN TAB 325 MG TAB PO PRN (13:56)
[2023-03-02] MEDS ORDERED: diphenhydrAMINE 25 MG CAP PO PRN (13:56)
[2023-03-02] MEDS ORDERED: diphenhydrAMINE 50 MG/ML 1 ML VIAL IVP PRN ×2 (13:56)
--- NOTE | 2023-03-02 14:00 | P.PROBDLV ---
Vaginal Delivery Note - . Vaginal Delivery Note: 37-year-old 6 para 0414 at 38-4/7 weeks that presents to labor and delivery with complaints of regular painful contractions since 1 AM. Patient was noted to be 4-5 cm upon admission. Patient underwent amniotomy and clear fluid was obtained. Minimal cervical change was noted as she progressed to 6 cm, Pitocin augmentation of labor was begun. Patient made slow progress to complete. Once completely dilated to began pushing and had a normal spent taste vaginal delivery of a viable female infant at 1348, weight is pending as the infant is on the maternal abdomen. Apgars of 9 and 9 at one and 5 minutes respectively. On inspection the patient's vaginal vault no vaginal lacerations were appreciated. Uterus was noted to be firm and below the umbilicus. Estimated blood loss 100 mL. Patient and tolerated delivery well and are resting comfortably.
[2023-03-02] MEDS: IBUPROFEN 600 MG TAB PO SCH (15:14)
[2023-03-02] MEDS: SENNOSIDES-DOCUSATE SODIUM 1 EACH TAB PO SCH (21:05)
[2023-03-03] MEDS: IBUPROFEN 600 MG TAB PO SCH ×3 (00:38→10:06)
[2023-03-03 01:00] VITALS: RESP 16
[2023-03-03] MEDS: SENNOSIDES-DOCUSATE SODIUM 1 EACH TAB PO SCH (08:09)
--- NOTE | 2023-03-03 08:50 | P.DS ---
Providers Date of admission: 03/02/23 05:18 Expected date of discharge: 03/03/23 Attending physician: Brit Sood Primary care physician: Stated None - Discharge Diagnosis(es) (1) Active labor Current Visit: Yes Status: Acute (2) H/O vaginal after Current Visit: No Status: Acute (3) Term Current Visit: No Status: Acute (4) Status post normal vaginal delivery Current Visit: Yes Status: Acute Hospital Course: This is a 37-year-old 6 now para 1415 at 38-3/7 weeks that presented to labor and delivery yesterday morning with complaints of regular painful contractions. Patient was admitted after cervical change was noted she then made minimal change progressing to 4-5 cm. Patient underwent amniotomy and clear fluid was obtained. Patient progressed to 6 cm for multiple hours therefore Pitocin augmentation of labor was begun. Patient progressed to completely dilated began pushing and had normal spontaneous vaginal delivery of a viable female at 1348, weight of 6 lbs. 13 oz., Apgars of 9 and 9 at one and 5 minutes respectively. Patient did have history of gestational diabetes during the which was diet controlled. Patient's course has been uneventful. On this day #1 she is ambulating and voiding without difficulty. She is tolerating regular diet without nausea or vomiting. States her pain is well-controlled. She denies concerns. She would like discharge home at 24 hours if possible. Patient Condition at Discharge: Good Plan - Discharge Summary New Discharge Prescriptions: No Action Vit No.179/Iron/Folic [ Tablet] 1 tablet PO DAILY Aspirin [Adult Low Dose Aspirin EC] 81 mg PO DAILY Ferrous Sulfate [Iron] 325 mg PO DAILY Discharge Medication List Aspirin [Adult Low Dose Aspirin EC] 81 mg PO DAILY 02/25/23 [History] Ferrous Sulfate [Iron] 325 mg PO DAILY 02/25/23 [History] Vit No.179/Iron/Folic [ Tablet] 1 tablet PO DAILY 02/25/23 [History] Follow up Appointment(s)/Referral(s): Brit Sood DO [Doctor of Osteopathic Medicine] - 6 Weeks Patient Instructions/Handouts: Vaginal Delivery (DC), Vaginal Delivery (GEN) Activity/Diet/Wound Care/Special Instructions: No tub baths or intercourse until 6 weeks . [id number] ibuprofen as needed for pain. Patient's call the office to make a routine visit for 6 weeks. Should she have any concerns prior to this appointment she is urged to call the office and be seen sooner. Discharge Disposition: HOME SELF-CARE
[2023-03-03] MEDS ORDERED: PRENATAL VIT-IRON-FOLIC ACID 1 EACH TABLET PO SCH (09:00)
[2023-03-03 10:22] VITALS: BP 106/73; PULSE 68; TEMP 97.9
== END 2023-03-03 14:40 | disposition home or self-care (01) | DRG 806 ==
LOC: FBPOP 04:30 → 4FBP 05:18
PROVIDERS: ADMIT Obstetrics & Gynecology; ATTEND Obstetrics & Gynecology Obstetrics
PROC: 10907ZC Drainage of Amniotic Fluid, Therapeutic from Products of Conception, Via Natural or Artificial Opening (ICD-10-PCS; principal; 2023-03-02)
PROC: 10E0XZZ Delivery of Products of Conception, External Approach (ICD-10-PCS; principal; 2023-03-02)
DX: O24.420 Gestational diabetes mellitus in childbirth, diet controlled (principal); K50.90 Crohn's disease, unspecified, without complications; O99.62 Diseases of the digestive system complicating childbirth; K21.9 Gastro-esophageal reflux disease without esophagitis; O75.89 Other specified complications of labor and delivery; M41.9 Scoliosis, unspecified; Z79.82 Long term (current) use of aspirin; Z79.899 Other long term (current) drug therapy; Z88.5 Allergy status to narcotic agent; Z3A.38 38 weeks gestation of pregnancy; Z37.0 Single live birth
CPT/HCPCS: 59025; 85025; 86850; 86900; 86901; 99213